=== PATIENT | male | born 1975 | race Caucasian/White ===

== ENCOUNTER 2020-10-05 18:20 | Emergency (ER) | payer BC ==
[2020-10-05 18:27] VITALS: RESP 18; TEMP 97.9
[2020-10-05] MEDS ORDERED: ASPIRIN 81 MG PO STA (19:07)
[2020-10-05] MEDS ORDERED: NITROGLYCERIN OINT 1 INCH/GM PACKET TOPICAL STA (19:07)
[2020-10-05] MEDS ORDERED: LORazepam 2 MG/ML INJ IV STA (19:07)
--- NOTE | 2020-10-05 19:16 | ED ---
General Adult HPI - General Chief complaint: Chest Pain Stated complaint: Chest pain Time Seen by Provider: 10/05/20 18:25 Source: patient, RN notes reviewed, old records reviewed Mode of arrival: wheelchair Limitations: no limitations - History of Present Illness Initial comments: This is a 44-year-old male who presents with left inner slightly posterior thigh pain. Patient states it was pretty severe earlier. Patient states he then started having some chest pain just prior to arrival and the pain did not radiate anywhere and there was only mild shortness of breath. He denies any recent fever chills or cough. Patient states he got the first of 2 vaccines for COVID. Patient denies any abdominal pain patient denies nausea vomiting diarrhea. Patient denies any diabetes states is borderline hypertensive but has no medications. Patient states years ago he did have borderline high cholesterol. Patient states currently he is not having any chest pain. - Related Data Home Medications Medication Instructions Recorded Confirmed Cholecalciferol (Vitamin D3) 125 mcg PO DAILY 10/05/20 10/05/20 [Vitamin D3 (5000 Iu)] Lisdexamfetamine Dimesylate 50 mg PO QAM 10/05/20 10/05/20 [Vyvanse] Multivitamins, Thera [Multivitamin 1 tab PO DAILY 10/05/20 10/05/20 (formulary)] Venlafaxine HCl [Effexor XR] 75 mg PO DAILY 10/05/20 10/05/20 tadalafiL [Tadalafil] 5 mg PO DAILY PRN 10/05/20 10/05/20 Allergies Allergy/AdvReac Type Severity Reaction Status Date / Time No Known Allergies Allergy Verified 10/05/20 20:39 Review of Systems ROS Statement: Those systems with pertinent positive or pertinent negative responses have been documented in the HPI. ROS Other: All systems not noted in ROS Statement are negative. Past Medical History Past Medical History: No Reported History Additional Past Medical History / Comment(s): boderline htn and high cholestrol History of Any Multi-Drug Resistant Organisms: None Reported Additional Past Surgical History / Comment(s): septalplasty Past Anesthesia/Blood Transfusion Reactions: No Reported Reaction Past Psychological History: ADD/ADHD, Depression Smoking Status: Never smoker Past Alcohol Use History: Occasional Past Drug Use History: None Reported - Past Family History Father Additional Family Medical History / Comment(s): no health problems General Exam - General Exam Comments Initial Comments: GENERAL: Patient is well-developed and well-nourished. Patient is nontoxic and well- hydrated and is in no acute distress. ENT: Neck is soft and supple. No significant lymphadenopathy is noted. Oropharynx is clear. Moist mucous membranes. Neck has full range of motion without eliciting any pain. There is no thyroid enlargement and no masses were felt. EYES: The sclera were anicteric and conjunctiva were pink and moist. Extraocular movements were intact and pupils were equal round and reactive to light. Eyelids were unremarkable. PULMONARY: Unlabored respirations. Good breath sounds bilaterally. No audible rales rhonchi or wheezing was noted. CARDIOVASCULAR: There is a regular rate and rhythm without any murmurs gallops or rubs. Femoral pulses are equal bilaterally ABDOMEN: Soft and nontender with normal bowel sounds. No palpable organomegaly was not ed. There is no palpable pulsatile mass. SKIN: Skin is clear with no lesions or rashes and otherwise unremarkable. NEUROLOGIC: Patient is alert and oriented x3. Cranial nerves II through XII are grossly intact. Motor and sensory are also intact. Normal speech, volume and content. Symmetrical smile. Cerebellar exam grossly intact. MUSCULOSKELETAL: Normal extremities with adequate strength and full range of motion. No lower extremity swelling or edema. No calf tenderness. LYMPHATICS: No significant lymphadenopathy is noted PSYCHIATRIC: Normal psychiatric evaluation. Normal interpersonal interactions appears functionally intact in deals appropriately with others. No signs of depression. No signs of anxiety. No delusions. No hallucinations. Limitations: no limitations Course Vital Signs 10/05/20 10/05/20 10/05/20 18:22 19:33 20:26 Temperature 97.9 F Pulse Rate 100 88 92 Respiratory 18 18 18 Rate Blood Pressure 148/90 138/97 129/85 O2 Sat by Pulse 97 98 98 Oximetry Medical Decision Making - Medical Decision Making Patient's EKG shows sinus tachycardia at 101 bpm CO interval is 136 QRS is 106 QT interval 338 QTC is 438 per patient's EKG shows no ST segment elevation or depression. Chest x-ray shows no acute abnormality. I went in the patient's room and told the patient he needed to stay after discussing with his decided to follow-up as an outpatient centered AMA. - Lab Data Result diagrams: 10/05/20 19:14 10/05/20 19:14 Lab Results 10/05/20 10/05/20 10/05/20 Range/Units 19:14 19:14 19:14 WBC 5.9 (3.8-10.6) k/uL RBC 4.70 (4.30-5.90) m/uL Hgb 15.0 (13.0-17.5) gm/dL Hct 41.1 (39.0-53.0) % MCV 87.4 (80.0-100.0) fL MCH 31.8 (25.0-35.0) pg MCHC 36.4 (31.0-37.0) g/dL RDW 11.9 (11.5-15.5) % Plt Count 261 (150-450) k/uL MPV 7.3 Neutrophils % 58 % Lymphocytes % 29 % Monocytes % 6 % Eosinophils % 4 % Basophils % 1 % Neutrophils # 3.5 (1.3-7.7) k/uL Lymphocytes # 1.8 (1.0-4.8) k/uL Monocytes # 0.4 (0-1.0) k/uL Eosinophils # 0.2 (0-0.7) k/uL Basophils # 0.0 (0-0.2) k/uL Hyperchromasia Slight PT 9.9 (9.0-12.0) sec INR 0.9 (<1.2) APTT 24.8 (22.0-30.0) sec D-Dimer 0.18 (<0.60) mg/L FEU Sodium 140 (137-145) mmol/L Potassium 3.8 (3.5-5.1) mmol/L Chloride 105 (98-107) mmol/L Carbon Dioxide 26 (22-30) mmol/L Anion Gap 9 mmol/L BUN 18 (9-20) mg/dL Creatinine 0.72 (0.66-1.25) mg/dL Est GFR (CKD-EPI)AfAm >90 (>60 ml/min/1.73 sqM) Est GFR (CKD-EPI)NonAf >90 (>60 ml/min/1.73 sqM) Glucose 74 (74-99) mg/dL Calcium 9.9 (8.4-10.2) mg/dL Magnesium 2.1 (1.6-2.3) mg/dL Total Bilirubin 0.7 (0.2-1.3) mg/dL AST 38 (17-59) U/L ALT 35 (4-49) U/L Alkaline Phosphatase 63 (38-126) U/L Troponin I (0.000-0.034) ng/mL Total Protein 7.4 (6.3-8.2) g/dL Albumin 4.7 (3.5-5.0) g/dL Lipase 73 (23-300) U/L Influenza Type A (PCR) (Not Detectd) Influenza Type B (PCR) (Not Detectd) RSV (PCR) (Not Detectd) SARS-CoV-2 (PCR) (Not Detectd) 10/05/20 10/05/20 Range/Units 19:14 19:14 WBC (3.8-10.6) k/uL RBC (4.30-5.90) m/uL Hgb (13.0-17.5) gm/dL Hct (39.0-53.0) % MCV (80.0-100.0) fL MCH (25.0-35.0) pg MCHC (31.0-37.0) g/dL RDW (11.5-15.5) % Plt Count (150-450) k/uL MPV Neutrophils % % Lymphocytes % % Monocytes % % Eosinophils % % Basophils % % Neutrophils # (1.3-7.7) k/uL Lymphocytes # (1.0-4.8) k/uL Monocytes # (0-1.0) k/uL Eosinophils # (0-0.7) k/uL Basophils # (0-0.2) k/uL Hyperchromasia PT (9.0-12.0) sec INR (<1.2) APTT (22.0-30.0) sec D-Dimer (<0.60) mg/L FEU Sodium (137-145) mmol/L Potassium (3.5-5.1) mmol/L Chloride (98-107) mmol/L Carbon Dioxide (22-30) mmol/L Anion Gap mmol/L BUN (9-20) mg/dL Creatinine (0.66-1.25) mg/dL Est GFR (CKD-EPI)AfAm (>60 ml/min/1.73 sqM) Est GFR (CKD-EPI)NonAf (>60 ml/min/1.73 sqM) Glucose (74-99) mg/dL Calcium (8.4-10.2) mg/dL Magnesium (1.6-2.3) mg/dL Total Bilirubin (0.2-1.3) mg/dL AST (17-59) U/L ALT (4-49) U/L Alkaline Phosphatase (38-126) U/L Troponin I <0.012 (0.000-0.034) ng/mL Total Protein (6.3-8.2) g/dL Albumin (3.5-5.0) g/dL Lipase (23-300) U/L Influenza Type A (PCR) Not Detected (Not Detectd) Influenza Type B (PCR) Not Detected (Not Detectd) RSV (PCR) Not Detected (Not Detectd) SARS-CoV-2 (PCR) Not Detected (Not Detectd) Disposition Clinical Impression: Chest pain Disposition: Left Against Medical Advice Instructions (If sedation given, give patient instructions): Chest Pain (ED) Is patient prescribed a controlled substance at d/c from ED?: No Referrals: Isabelle Cardoza MD [Primary Care Provider] - 1-2 days Time of Disposition: 21:02
[2020-10-05 19:25] LABS: Basophils % (A) 1 %; Eosinophils # (A) 0.2 k/uL (0-0.7); Eosinophils % (A) 4 %; HCT 41.1 % (39.0-53.0); Hyperchromasia Slight; Lymphocytes # (A) 1.8 k/uL (1.0-4.8); Lymphocytes % (A) 29 %; MCH 31.8 pg (25.0-35.0); MCHC 36.4 g/dL (31.0-37.0); MCV 87.4 fL (80.0-100.0); Mean Platelet Volume 7.3; Monocytes # (A) 0.4 k/uL (0-1.0); Monocytes % (A) 6 %; Neutrophils # (A) 3.5 k/uL (1.3-7.7); Neutrophils % (A) 58 %; Platelet Count 261 k/uL (150-450); RDW 11.9 % (11.5-15.5); WBC 5.9 k/uL (3.8-10.6)
[2020-10-05 19:35] LABS: ALT 35 U/L (4-49); AST 38 U/L (17-59); African American GFR (CKD) >90 (>60 ml/min/1.73 sqM); Albumin 4.7 g/dL (3.5-5.0); Alkaline Phosphatase 63 U/L (38-126); Anion Gap 9 mmol/L; Blood Urea Nitrogen 18 mg/dL (9-20); Calcium 9.9 mg/dL (8.4-10.2); Carbon Dioxide 26 mmol/L (22-30); Chloride 105 mmol/L (98-107); Glucose 74 mg/dL (74-99); Lipase 73 U/L (23-300); Magnesium 2.1 mg/dL (1.6-2.3); Non-African American GFR(CKD) >90 (>60 ml/min/1.73 sqM); Potassium 3.8 mmol/L (3.5-5.1); Sodium 140 mmol/L (137-145); Total Bilirubin 0.7 mg/dL (0.2-1.3); Total Protein 7.4 g/dL (6.3-8.2)
[2020-10-05 19:41] LABS: D-Dimer 0.18 mg/L FEU (<0.60); INR 0.9 (<1.2); Partial Thromboplastin Time 24.8 sec (22.0-30.0); Prothrombin Time 9.9 sec (9.0-12.0)
--- NOTE | 2020-10-05 19:57 | XR ---
EXAMINATION TYPE: XR chest 2V DATE OF EXAM: 10/05/2020 COMPARISON: 06/09/2014. HISTORY: Chest pain. TECHNIQUE: Frontal and lateral views of the chest are obtained. FINDINGS: There is no focal air space opacity, pleural effusion, or pneumothorax seen. The cardiac silhouette size is within normal limits. The osseous structures are intact. IMPRESSION: No acute cardiopulmonary process.
--- NOTE | 2020-10-05 20:22 | US ---
EXAMINATION TYPE: US venous doppler duplex LE LT DATE OF EXAM: 10/05/2020 7:56 PM COMPARISON: NONE CLINICAL HISTORY: Left thigh pain. Left thigh pain. No hx of DVT. Patient does not take blood thinner s. SIDE PERFORMED: Left TECHNIQUE: The lower extremity deep venous system is examined utilizing real time linear array sonog hanna with graded compression, doppler sonography and color-flow sonography. VESSELS IMAGED: Common Femoral Vein Deep Femoral Vein Greater Saphenous Vein * Femoral Vein Popliteal Vein Small Saphenous Vein * Proximal Calf Veins (* superficial vessels) Left Leg: No evidence of DVT in veins imaged at this time from prox calf veins to CFV/GSV. IMPRESSION: No evidence of left lower extremity DVT.
[2020-10-05 20:27] VITALS: BP 129/85; PULSE 92
== END 2020-10-05 21:14 | disposition left against medical advice (07) ==
LOC: EC 18:20
DX: R07.9 Chest pain, unspecified (principal); Z53.29 Procedure and treatment not carried out because of patient's decision for other reasons
CPT/HCPCS: 36415; 93005; 85379; 80053; 83690; 83735; 84484; 85025; 85610; 85730; 87636; 71046; 93971; 99285; 96374; J2060

== ENCOUNTER → 2021-09-03 | Outpatient (CLI) | payer BC ==
--- NOTE | 2021-09-03 15:39 | XR ---
Lumbar spine with flexion and extension views HISTORY: M 54.41 8 views of lumbosacral spine There is no evident spondylolysis or spondylolisthesis. Loss of disc height is present at L5-S1 with associated sclerosis, multilevel spondylosis. Loss of disc height also present to lesser extent at L4 -5. Sclerosis is present in the posterior elements. No change in alignment on flexion and extension v iews, minimal retrolisthesis grade 1 L5-S1 is stable. Vacuum phenomenon is noted on extension view at L5-S1. IMPRESSION: Degenerative disc disease and facet arthropathy.
== END | disposition home or self-care (01) ==
LOC: RADXRMAIN 14:47
PROVIDERS: ATTEND Specialist
DX: M51.36 Other intervertebral disc degeneration, lumbar region (principal); M47.816 Spondylosis without myelopathy or radiculopathy, lumbar region
CPT/HCPCS: 72114

== ENCOUNTER → 2021-10-08 | Outpatient (CLI) | payer BC ==
--- NOTE | 2021-10-08 15:43 | XR ---
Lumbar spine HISTORY: Back pain 3 views of lumbar spine, correlation prior exam 09/03/2021 There is been interval posterior fusion at L5-S1. Loss of disc height and intervertebral spacing bloc k is noted at this level with associated spondylosis, minimal retrolisthesis grade 1 L5-S1 is suspect ed. Lumbar vertebral bodies show preserved height. There is a slight spinal curvature. Transpedicular screw placement on the left projects slightly laterally. impression: Surgical follow-up as described, CT may be of benefit
== END | disposition home or self-care (01) ==
LOC: RADXRMAIN 15:02
PROVIDERS: ATTEND Specialist
DX: M43.8X6 Other specified deforming dorsopathies, lumbar region (principal); M51.36 Other intervertebral disc degeneration, lumbar region; M43.27 Fusion of spine, lumbosacral region
CPT/HCPCS: 72100

== ENCOUNTER 2021-10-17 11:43 | Inpatient (IN) | payer BC ==
[2021-10-17] MEDS ORDERED: FAMOTIDINE 20 MG/2 ML VIAL IV STA (12:00)
[2021-10-17] MEDS ORDERED: PANTOPRAZOLE 40 MG TABLET PO STA (12:01)
[2021-10-17] MEDS ORDERED: ONDANSETRON 4 MG/2 ML VIAL IVP STA (12:20)
[2021-10-17 12:23] LABS: ALT 596 U/L (4-49); AST 327 U/L (17-59); African American GFR (CKD) >90 (>60 ml/min/1.73 sqM); Albumin 4.4 g/dL (3.5-5.0); Alkaline Phosphatase 279 U/L (38-126); Anion Gap 8 mmol/L; Blood Urea Nitrogen 12 mg/dL (9-20); Calcium 9.3 mg/dL (8.4-10.2); Carbon Dioxide 25 mmol/L (22-30); Chloride 103 mmol/L (98-107); Glucose 122 mg/dL (74-99); Lipase 47 U/L (23-300); Non-African American GFR(CKD) >90 (>60 ml/min/1.73 sqM); Potassium 3.9 mmol/L (3.5-5.1); Sodium 136 mmol/L (137-145); Total Bilirubin 2.8 mg/dL (0.2-1.3); Total Protein 7.3 g/dL (6.3-8.2)
[2021-10-17 12:24] LABS: Basophils # (A) 0.1 k/uL (0-0.2); Basophils % (A) 1 %; Eosinophils # (A) 0.4 k/uL (0-0.7); Eosinophils % (A) 7 %; HCT 42.5 % (39.0-53.0); Lymphocytes # (A) 0.5 k/uL (1.0-4.8); Lymphocytes % (A) 9 %; MCH 31.7 pg (25.0-35.0); MCHC 35.4 g/dL (31.0-37.0); MCV 89.6 fL (80.0-100.0); Mean Platelet Volume 7.2; Monocytes # (A) 0.4 k/uL (0-1.0); Monocytes % (A) 7 %; Neutrophils # (A) 4.3 k/uL (1.3-7.7); Neutrophils % (A) 74 %; Platelet Count 305 k/uL (150-450); RBC 4.74 m/uL (4.30-5.90); WBC 5.8 k/uL (3.8-10.6)
--- NOTE | 2021-10-17 12:37 | XR ---
EXAMINATION TYPE: XR chest 2V DATE OF EXAM: 10/17/2021 COMPARISON: 10/05/2020 HISTORY: 45-year-old male epigastric pain and vomiting TECHNIQUE: PA and lateral views FINDINGS: Heart normal size. Aorta and pulmonary vasculature within normal limits. Mild interstitial prominence has a chronic appearance. No consolidation or pleural effusion. IMPRESSION: No acute cardiopulmonary process.
[2021-10-17] MEDS ORDERED: HYDROmorphone 0.5 MG/0.5 ML SYRINGE IVP STA (12:52)
--- NOTE | 2021-10-17 13:39 | ED ---
Abdominal Pain HPI - General Chief Complaint: Abdominal Pain Stated Complaint: Abd Pain,Vomiting Time Seen by Provider: 10/17/21 11:53 Source: patient Mode of arrival: ambulatory - History of Present Illness Initial Comments: Patient is a 45-year-old male who presents to the emergency department with a chief complaint of upper abdominal pain for 2 days. Patient states he initially experienced pain 2 days ago and yesterday the pain subsided. Patient states he woke up with increased pain today. Describes it as an aching pain in the middle upper abdomen. No chest pain. Patient had one episode of vomiting this morning after eating. He states he never felt nauseous just felt like he couldn't get the food down. No history of acid reflux. No history of abdominal surgery. No fever or chills. Normal bowel movements, nonbloody. Of note, patient had spinal fusion 3 weeks ago. - Related Data Home Medications Medication Instructions Recorded Confirmed Cholecalciferol (Vitamin D3) 125 mcg PO DAILY 10/05/20 10/05/20 [Vitamin D3 (5000 Iu)] Lisdexamfetamine Dimesylate 50 mg PO QAM 10/05/20 10/05/20 [Vyvanse] Multivitamins, Thera [Multivitamin 1 tab PO DAILY 10/05/20 10/05/20 (formulary)] Venlafaxine HCl [Effexor XR] 75 mg PO DAILY 10/05/20 10/05/20 tadalafiL 5 mg PO DAILY PRN 10/05/20 10/05/20 Allergies Allergy/AdvReac Type Severity Reaction Status Date / Time No Known Allergies Allergy Verified 10/17/21 11:51 Review of Systems ROS Statement: Those systems with pertinent positive or pertinent negative responses have been documented in the HPI. ROS Other: All systems not noted in ROS Statement are negative. Past Medical History Past Medical History: No Reported History Additional Past Medical History / Comment(s): boderline htn and high cholestrol History of Any Multi-Drug Resistant Organisms: None Reported Additional Past Surgical History / Comment(s): septalplasty Past Anesthesia/Blood Transfusion Reactions: No Reported Reaction Past Psychological History: ADD/ADHD, Depression Smoking Status: Never smoker Past Alcohol Use History: Occasional Past Drug Use History: None Reported - Past Family History Father Additional Family Medical History / Comment(s): no health problems General Exam General appearance: alert, in no apparent distress Head exam: Present: atraumatic, normocephalic, normal inspection Eye exam: Present: normal appearance, PERRL, EOMI. Absent: scleral icterus, conjunctival injection, periorbital swelling ENT exam: Present: normal oropharynx Respiratory exam: Present: normal lung sounds bilaterally. Absent: respiratory distress, wheezes, rales, rhonchi, stridor, chest wall tenderness Cardiovascular Exam: Present: normal rhythm, tachycardia, normal heart sounds. Absent: regular rate, systolic murmur, diastolic murmur, rubs, gallop, clicks GI/Abdominal exam: Present: soft, tenderness (Mild in epigastric region), normal bowel sounds. Absent: distended, guarding, rebound, rigid Back exam: Present: normal inspection (Surgical incisions healing nicely) Neurological exam: Present: alert, oriented X3, CN II-XII intact Psychiatric exam: Present: normal affect, normal mood Skin exam: Present: warm, dry, intact, normal color. Absent: rash Course Vital Signs 10/17/21 10/17/21 10/17/21 11:47 12:50 14:00 Temperature 98.2 F Pulse Rate 109 H 101 H 93 Respiratory 18 18 16 Rate Blood Pressure 129/85 139/95 132/89 O2 Sat by Pulse 98 97 95 Oximetry Medical Decision Making - Medical Decision Making This is a 45-year-old male who presents with intermittent epigastric pain. Thorough history and examination were performed. Patient is well-appearing and in no apparent distress. He is afebrile. No abdominal history. There is mild tenderness with palpation of the epigastric region. No chest wall tenderness. No chest pain. Patient initially denied nausea during his stay had an episode of nausea and vomiting. Zofran was given. Laboratory studies and imaging was obtained. Patient had an unremarkable chest x-ray and significantly elevated liver enzymes. AST at 327, ALT of 596, and alk phos at 279. Total bilirubin also elevated at 2.8. White count normal at 5.8. I did reexamine patient's abdomen who does not have right upper quadrant te nderness. Negative Patton sign. With concern for gallbladder pathology ultrasound was obtained. Ultrasound shows a collapsed gallbladder with multiple stones and borderline wall thickening with concern for acute cholecystitis. Antibiotics, IV fluids, and NPO diet were initiated. Case discussed with Dr. Palmer and Dr. Monreal. Patient will be admitted to Dr. Monreal with consult to Dr. Palmer. Results discussed the patient verbalizes understanding and is agreeable to plan. Patient's pain and nausea are controlled. He declines additional medication at this time. Admitted in stable condition. Dr. Flower is my attending. - Lab Data Result diagrams: 10/17/21 12:06 10/17/21 12:06 Lab Results 10/17/21 10/17/21 Range/Units 12:06 12:06 WBC 5.8 (3.8-10.6) k/uL RBC 4.74 (4.30-5.90) m/uL Hgb 15.0 (13.0-17.5) gm/dL Hct 42.5 (39.0-53.0) % MCV 89.6 (80.0-100.0) fL MCH 31.7 (25.0-35.0) pg MCHC 35.4 (31.0-37.0) g/dL RDW 13.0 (11.5-15.5) % Plt Count 305 (150-450) k/uL MPV 7.2 Neutrophils % 74 % Lymphocytes % 9 % Monocytes % 7 % Eosinophils % 7 % Basophils % 1 % Neutrophils # 4.3 (1.3-7.7) k/uL Lymphocytes # 0.5 L (1.0-4.8) k/uL Monocytes # 0.4 (0-1.0) k/uL Eosinophils # 0.4 (0-0.7) k/uL Basophils # 0.1 (0-0.2) k/uL Sodium 136 L (137-145) mmol/L Potassium 3.9 (3.5-5.1) mmol/L Chloride 103 (98-107) mmol/L Carbon Dioxide 25 (22-30) mmol/L Anion Gap 8 mmol/L BUN 12 (9-20) mg/dL Creatinine 0.79 (0.66-1.25) mg/dL Est GFR (CKD-EPI)AfAm >90 (>60 ml/min/1.73 sqM) Est GFR (CKD-EPI)NonAf >90 (>60 ml/min/1.73 sqM) Glucose 122 H (74-99) mg/dL Calcium 9.3 (8.4-10.2) mg/dL Total Bilirubin 2.8 H (0.2-1.3) mg/dL AST 327 H (17-59) U/L ALT 596 H (4-49) U/L Alkaline Phosphatase 279 H (38-126) U/L Total Protein 7.3 (6.3-8.2) g/dL Albumin 4.4 (3.5-5.0) g/dL Lipase 47 (23-300) U/L - EKG Data EKG Comments: EKG taken at 12:17 Sinus rhythm, no ST elevation or depression Ventricular rate 98 MI interval 133 QRS duration 102 QTC 363 Disposition Clinical Impression: Nausea & vomiting, Epigastric abdominal pain, Acute cholecystitis Disposition: ADMITTED IP TO THIS HOSP Condition: Fair Referrals: Isabelle Cardoza MD [Primary Care Provider] - 1-2 days Decision Time: 14:46
--- NOTE | 2021-10-17 14:02 | US ---
EXAMINATION TYPE: US abdomen limited DATE OF EXAM: 10/17/2021 COMPARISON: NONE CLINICAL HISTORY: 45-year-old male epigastric pain, elevated LFT. TECHNIQUE: Multiple sonographic images of the right upper quadrant are obtained. FINDINGS: EXAM MEASUREMENTS: Liver Length: 13.3 cm Gallbladder Wall: 0.3 cm CBD: 0.3 cm Right Kidney: 10.5 x 5.8 x 4.7 cm [employer] notes: Severe overlying bowel gas, technically difficult and limited study. Pancreas: Obscured by bowel gas Liver: wnl Gallbladder: Partially collapsed with multiple stones within its lumen and suggestion of borderline w all thickening. Evidence for sonographic Patton's sign: Yes CBD: very limited visualization, appears wnl . The short segment that is visualized is normal calibe r. Right Kidney: No hydronephrosis or masses seen IMPRESSION: 1. Markedly limited exam as above. 2. The collapsed gallbladder is filled with stones and seems to show borderline wall thickening. Karis elate for chronic cholecystitis. However, given positive sonographic Patton's sign, if concern for ea rly acute cholecystitis, HIDA scan can be performed. 3. Bile duct largely obscured. A short segment of the visualized duct measures normal caliber at 3 mm .
[2021-10-17] MEDS ORDERED: SODIUM CHLORIDE 0.9% 2,000 ML IV STA (14:08)
[2021-10-17] MEDS ORDERED: PIPERACILLIN-TAZOBACTAM 3.375 GM in SODIUM CHLORIDE 0.9% 100 ML IVPB STA (14:09)
[2021-10-17] MEDS ORDERED: NALOXONE 0.4 MG/ML 1 ML VIAL IV PRN ×2 (14:18→18:00)
[2021-10-17] MEDS: ONDANSETRON 4 MG/2 ML VIAL IVP PRN (16:57)
[2021-10-17] MEDS: SODIUM CHLORIDE 0.9% 1,000 ML IV SCH (16:57)
[2021-10-17] MEDS: HYDROmorphone 0.5 MG/0.5 ML SYRINGE IVP PRN ×2 (16:57→20:14)
--- NOTE | 2021-10-17 18:08 | P.HPIM ---
History of Present Illness H&P Date: 10/17/21 Chief Complaint: epigastric pain 45-year-old male who presents to the emergency department with a chief complaint of upper abdominal pain for 2 days. Describes it as an aching pain in the middle upper abdomen. No chest pain. Patient had several episodes of vomiting with this. No fever or chills. Normal bowel movements, nonbloody. Of note, patient had spinal fusion 3 weeks ago. No history of acid reflux. No history of abdominal surgery. Patient was afebrile in the emergency department, blood pressure was stable at his heart rate was up at 110. Laboratory evaluation showed no leukocytosis, sodium 136, rest of electrolytes okay, AST 327, ALT 596, Alp 279, bilirubin 2.8. Abdominal ultrasound showed gallbladder filled with stones with wall thickening. Review of Systems Complete review of system was performed, negative except for what is stated in HPI Past Medical History Past Medical History: No Reported History Additional Past Medical History / Comment(s): boderline htn and high cholestrol History of Any Multi-Drug Resistant Organisms: None Reported Additional Past Surgical History / Comment(s): septalplasty Past Anesthesia/Blood Transfusion Reactions: No Reported Reaction Past Psychological History: ADD/ADHD, Depression Smoking Status: Never smoker Past Alcohol Use History: Occasional Past Drug Use History: None Reported - Past Family History Father Additional Family Medical History / Comment(s): no health problems Medications and Allergies Home Medications Medication Instructions Recorded Confirmed Type Venlafaxine HCl [Effexor XR] 75 mg PO DAILY 10/05/20 10/17/21 History tadalafiL 5 mg PO DAILY PRN 10/05/20 10/17/21 History Dextroamphetamine/Amphetamine 25 mg PO DAILY 10/17/21 10/17/21 History [Adderall Xr] Ibuprofen [Motrin] 800 mg PO TID PRN 10/17/21 10/17/21 History Allergies Allergy/AdvReac Type Severity Reaction Status Date / Time No Known Allergies Allergy Verified 10/17/21 14:49 Physical Exam Vitals: Vital Signs Temp Pulse Resp BP Pulse Ox 10/17/21 12:50 101 H 18 139/95 97 10/17/21 11:47 98.2 F 109 H 18 129/85 98 Intake and Output 10/16/21 10/17/21 10/17/21 22:59 06:59 14:59 Other: Weight 86.183 kg Constitutional: No acute distress, conversant, pleasant Eyes:Anicteric sclerae, moist conjunctiva, no lid-lag, PERRLA, ENMT: Oropharynx clear, no erythema, exudates Neck: Supple, FROM, no masses, or JVD, No carotid bruits, No thyromegaly Lungs: Clear to auscultation, Clear to percussion, Normal respiratory effort, no accessory muscle use Cardiovascular: Heart regular in rate and rhythm, No murmurs, gallops, or rubs, No peripheral edema Abdominal: Soft, tender in the epigastric area, no guarding, rebound or rigidity, Normoactive bowel sounds, No hepatomegaly, No splenomegaly, No pal pable mass Skin: Normal temperature, tone, texture, turgor, no induration, No subcutaneous nodules, No rash, lesions, No ulcers Extremities: No digital cyanosis, No clubbing, Pedal pulses intact and symmetrical, Radial pulses intact and symmetrical, No calf tenderness Psychiatric: Alert and oriented to person, place and time, appropriate affect, intact judgement Neuro: Muscles Strength 5/5 in all 4 extremities, Sensation to light touch grossly present throughout, Cranial nerves II-XII grossly intact, no focal sensory deficits Results CBC & Chem 7: 10/17/21 12:06 10/17/21 12:06 Labs: Abnormal Lab Results - Last 24 Hours (Table) 10/17/21 10/17/21 Range/Units 12:06 12:06 Lymphocytes # 0.5 L (1.0-4.8) k/uL Sodium 136 L (137-145) mmol/L Glucose 122 H (74-99) mg/dL Total Bilirubin 2.8 H (0.2-1.3) mg/dL AST 327 H (17-59) U/L ALT 596 H (4-49) U/L Alkaline Phosphatase 279 H (38-126) U/L Assessment and Plan Plan: Abdominal pain likely secondary to acute cholecystitis with cholelithiasis Consult general surgery Nothing by mouth Pain control with Toradol and opiates Zosyn Follow LFTs in a.m. Transaminitis Likely secondary to above Follow LFTs in a.m. IV fluids Chronic ADHD, Depression Hold meds for now as he is nothing by mouth DVT prophylaxis Lovenox subcu Admit to inpatient, expected length of stay more than 2 midnights
[2021-10-17] MEDS ORDERED: METOCLOPRAMIDE 5 MG/ML 2 ML VIAL IVP STA (19:58)
[2021-10-17] MEDS: ENOXAPARIN 40 MG/0.4 ML SYRINGE SQ SCH (21:25)
[2021-10-17] MEDS: PIPERACILLIN-TAZOBACTAM 3.375 GM in SODIUM CHLORIDE 0.9% 100 ML IVPB SCH (21:26)
[2021-10-18] MEDS: SODIUM CHLORIDE 0.9% 1,000 ML IV SCH ×3 (02:30→17:57)
[2021-10-18] MEDS: PIPERACILLIN-TAZOBACTAM 3.375 GM in SODIUM CHLORIDE 0.9% 100 ML IVPB SCH ×3 (05:27→19:20)
[2021-10-18] MEDS: ENOXAPARIN 40 MG/0.4 ML SYRINGE SQ SCH (09:05)
[2021-10-18 09:39] LABS: Basophils # (A) 0.04 X 10*3/uL (0.00-0.10); Basophils % (A) 0.8 %; Eosinophils % (A) 8.2 %; HCT 38.2 % (39.6-50.0); Immature Grans, Automated 0.4 %; Lymphocytes # (A) 0.51 X 10*3/uL (0.90-5.00); Lymphocytes % (A) 10.5 %; MCH 30.7 pg (27.0-32.0); MCV 90.1 fL (80.0-97.0); Mean Platelet Volume 10.5 fL (9.5-12.2); Monocytes % (A) 8.2 %; NRBC Per 100 WBC 0 /100 WBCS (0.0-0.0); Neutrophils # (A) 3.51 X 10*3/uL (1.80-7.70); Neutrophils % (A) 71.9 %; Platelet Count 246 X 10*3/uL (140-440); RBC 4.24 X 10*6/uL (4.40-5.60); RDW 12.7 % (11.5-14.5); WBC 4.88 X 10*3/uL (4.50-10.00)
[2021-10-18 09:57] LABS: Magnesium 1.9 mg/dL (1.5-2.4); Phosphorus 3.2 mg/dL (2.4-5.1)
[2021-10-18 10:16] LABS: African American GFR (CKD) 104.9 (60.0-200.0); Albumin 3.9 g/dL (3.8-4.9); Albumin/Globulin Ratio 1.86 (1.60-3.17); Anion Gap 10.4 mmol/L (10.00-18.00); BUN/Creat Ratio 6.6 Ratio (12.00-20.00); Blood Urea Nitrogen 6.6 mg/dL (9.0-27.0); Calcium 8.9 mg/dL (8.7-10.3); Carbon Dioxide 25.6 mmol/L (20.0-27.5); Globulin 2.1 g/dL (1.6-3.3); Non-African American GFR(CKD) 90.5 (60.0-200.0); Potassium 4.2 mmol/L (3.5-5.5); Total Bilirubin 4.7 mg/dL (0.30-1.20)
[2021-10-18] MEDS: ONDANSETRON 4 MG/2 ML VIAL IVP PRN ×2 (11:19→21:42)
--- NOTE | 2021-10-18 13:05 | P.GSCN ---
History of Present Illness Consult date: 10/18/21 History of present illness: CHIEF COMPLAINT: Abdominal pain HISTORY OF PRESENT ILLNESS: This is a 46-year-old male who presented to the emergency room with complaints of epigastric abdominal pain for the past 4 days. He has been having nausea and vomiting. He reports that symptoms did start on Monday had improved slightly and then on Monday evening after he ate ribs D abdominal pain worsened. Gallbladder ultrasound had demonstrated collapse gallbladder filled with stones and seems to show borderline wall thickening. Correlate for chronic cholecystitis and possible acute cholecystitis. Positive Patton sign. Bile duct largely obscured. Short segment of the visual lights duct measures normal caliber at 3 mm. Patient's LFTs and total bilirubin are elevated. He reports his pain is controlled with pain medication. No prior abdominal surgeries. Patient has had mild tachycardia. And low-grade temp of 99. PAST MEDICAL HISTORY: Hypertension and hypercholesterolemia, ADHD PAST SURGICAL HISTORY: See list. MEDICATIONS: See list. ALLERGIES: See list. SOCIAL HISTORY: No illicit drug use. REVIEW OF SYSTEMS: CONSTITUTIONAL: Denies fever or chills. HEENT: Denies blurred vision, vision changes, or eye pain. Denies hemoptysis CARDIOVASCULAR: Denies chest pain or pressure. RESPIRATORY: No shortness of breath. GASTROINTESTINAL: See HPI for pertinent findings HEMATOLOGIC: Denies bleeding disorders. GENITOURINARY: Denies any blood in urine or increased urinary frequency. SKIN: Denies pruitis. Denies rash. PHYSICAL EXAM: VITAL SIGNS: Reviewed GENERAL: Well-developed in no acute distress. HEENT: No sclera icterus. Extraocular movements grossly intact. Moist buccal mucosa. Head is atraumatic, normocephalic. No nasal drainage. ABDOMEN: Soft. Nondistended. Mild tenderness to palpation epigastric area NEUROLOGIC: Alert and oriented. Cranial nerves II through XII grossly intact. LABORATORY DATA: WBC is 4.88 hemoglobin 13 platelets 246 Sodium is 140 potassium is 4.2 creatinine 1.0 Total bilirubin 2.8 up to 4.70 AST 327 down to 138 ALT 596 down to 419 alk phos 279 down to 272 Lipase 47 IMAGING: Ultrasound findings as stated above ASSESSMENT: 1. Acute cholecystitis with cholelithiasis and borderline gallbladder wall thickening noted on ultrasound 2. Elevated LFTs and total bilirubin with possible choledocholithiasis PLAN: -Further recommendations forthcoming per surgeon -Keep patient nothing by mouth -Continue IV antibiotics -Continue IV fluids -Repeat CMP in a.m. -Continue pain medication as needed -continue antiemetics as needed Thank you for this consultation Physician [employer] note has been reviewed by physician. Signing provider agrees with the documented findings, assessment, and plan of care. Past Medical History Past Medical History: No Reported History Additional Past Medical History / Comment(s): boderline htn and high cholestrol History of Any Multi-Drug Resistant Organisms: None Reported Past Surgical History: Back Surgery Additional Past Surgical History / Comment(s): septalplasty Past Anesthesia/Blood Transfusion Reactions: No Reported Reaction Past Psychological History: ADD/ADHD, Depression Smoking Status: Never smoker Past Alcohol Use History: Occasional Past Drug Use History: None Reported - Past Family History Father Additional Family Medical History / Comment(s): no health problems Medications and Allergies Home Medications Medication Instructions Recorded Confirmed Type Venlafaxine HCl [Effexor XR] 75 mg PO DAILY 10/05/20 10/17/21 History tadalafiL 5 mg PO DAILY PRN 10/05/20 10/17/21 History Dextroamphetamine/Amphetamine 25 mg PO DAILY 10/17/21 10/17/21 History [Adderall Xr] Ibuprofen [Motrin] 800 mg PO TID PRN 10/17/21 10/17/21 History Allergies Allergy/AdvReac Type Severity Reaction Status Date / Time No Known Allergies Allergy Verified 10/17/21 14:49 Surgical - Exam Vital Signs Temp Pulse Resp BP Pulse Ox 98.2 F 109 H 18 129/85 98 10/17/21 11:47 10/17/21 11:47 10/17/21 11:47 10/17/21 11:47 10/17/21 11:47 Results - Labs 10/18/21 06:26 10/18/21 06:26 Abnormal Lab Results - Last 24 Hours (Table) 10/17/21 10/17/21 10/18/21 Range/Units 12:06 12:06 06:26 RBC 4.24 L (4.40-5.60) X 10*6/uL Hct 38.2 L (39.6-50.0) % Lymphocytes # 0.5 L 0.51 L (1.0-4.8) k/uL Eosinophils # 0.40 H (0.04-0.35) X 10*3/uL Sodium 136 L (137-145) mmol/L Glucose 122 H (74-99) mg/dL Total Bilirubin 2.8 H (0.2-1.3) mg/dL AST 327 H (17-59) U/L ALT 596 H (4-49) U/L Alkaline Phosphatase 279 H (38-126) U/L Diabetes panel 10/17/21 Range/Units 12:06 Sodium 136 L (137-145) mmol/L Potassium 3.9 (3.5-5.1) mmol/L Chloride 103 (98-107) mmol/L Carbon Dioxide 25 (22-30) mmol/L BUN 12 (9-20) mg/dL Creatinine 0.79 (0.66-1.25) mg/dL Glucose 122 H (74-99) mg/dL Calcium 9.3 (8.4-10.2) mg/dL AST 327 H (17-59) U/L ALT 596 H (4-49) U/L Alkaline Phosphatase 279 H (38-126) U/L Total Protein 7.3 (6.3-8.2) g/dL Albumin 4.4 (3.5-5.0) g/dL Calcium panel 10/17/21 Range/Units 12:06 Calcium 9.3 (8.4-10.2) mg/dL Albumin 4.4 (3.5-5.0) g/dL Pituitary panel 10/17/21 Range/Units 12:06 Sodium 136 L (137-145) mmol/L Potassium 3.9 (3.5-5.1) mmol/L Chloride 103 (98-107) mmol/L Carbon Dioxide 25 (22-30) mmol/L BUN 12 (9-20) mg/dL Creatinine 0.79 (0.66-1.25) mg/dL Glucose 122 H (74-99) mg/dL Calcium 9.3 (8.4-10.2) mg/dL Adrenal panel 10/17/21 Range/Units 12:06 Sodium 136 L (137-145) mmol/L Potassium 3.9 (3.5-5.1) mmol/L Chloride 103 (98-107) mmol/L Carbon Dioxide 25 (22-30) mmol/L BUN 12 (9-20) mg/dL Creatinine 0.79 (0.66-1.25) mg/dL Glucose 122 H (74-99) mg/dL Calcium 9.3 (8.4-10.2) mg/dL Total Bilirubin 2.8 H (0.2-1.3) mg/dL AST 327 H (17-59) U/L ALT 596 H (4-49) U/L Alkaline Phosphatase 279 H (38-126) U/L Total Protein 7.3 (6.3-8.2) g/dL Albumin 4.4 (3.5-5.0) g/dL
--- NOTE | 2021-10-18 17:21 | P.PN ---
Subjective Progress Note Date: 10/18/21 Hospital course: Patient is a 46-year-old male who presents to the emergency department with a chief complaint of upper abdominal pain for 2 days. Describes it as an aching pain in the middle upper abdomen. No chest pain. Patient had several episodes of vomiting with this. No fever or chills. Normal bowel movements, nonbloody. Of note, patient had spinal fusion 3 weeks ago. No history of acid reflux. No history of abdominal surgery. Upon arrival to the emergency department patient was found to have tachycardia with heart rate elevating to 110s and transaminitis with total bili of 2.8, AST 327, ALT 596 and alkaline phosphatase of 279. Abdominal ultrasound was completed which revealed gallbladder filled with stones with wall thickening. Patient was admitted under our services with consultation to general surgery. Physical exam: Patient was seen and fully evaluated at bedside this morning. He was found to have further elevation of total bili up to 4.70 with remainder of liver enzymes slightly improving with AST of 138, ALT 419, and alkaline phosphatase of 272. P atient reports mild improvement in his pain but contributes this to pain medication he has been receiving. Patient does report mild nausea. At this time patient remains nothing by mouth with plans for possible cholecystectomy later today pending further evaluation by surgeon. Vital signs reviewed and stable. General: Nontoxic, no distress and appears stated age. Derm: Skin warm and dry, normal coloration for ethnicity. Head: Atraumatic, normocephalic and symmetric. Eyes: EOMs intact, no lid lag, and anicteric sclera Mouth: no lip lesions, mucus membranes moist Cardiovascular: regular rate and rhythm with normal S1S2, no murmur, positive posterior tibial pulses bilaterally, and cap refill < 2 seconds. Lungs: Respirations even, regular, and unlabored on room air. Lungs CTA bilater ally, no rhonchi, no rales, no wheezing, and no accessory muscle usage. Abdominal: soft, mild epigastric tenderness upon palpation, no guarding, no appreciable organomegaly Ext: ROM intact. No gross muscle atrophy, no edema, no contractures Neuro: Speech clear, face symmetrical and CN II-XII grossly intact with no noted focal neuro deficits Psych: Alert and oriented to person, place, time, and situation. Appropriate and pleasant affect. Assessment and Plan of Care: Abdominal pain secondary to acute cholecystitis with cholelithiasis Transaminitis likely secondary to acute cholecystitis -Gen. surgery following, plans for cholecystectomy -NPO pending further recommendations from general surgery. -Symptomatic care and pain management -IV antibiotics Zosyn -Continue gentle IV fluid hydration -Continued close monitoring with repeat a.m. labs. Chronic ADHD, Depression Hold meds for now as he is nothing by mouth CODE STATUS: Full code DVT prophylaxis: Lovenox Discussed with: Patient and RN Anticipated discharge date: Clinical course to determine Anticipated discharge place: Home A total of 37 minutes was spent on the care of this complex patient more than 50% of the time was spent in counseling and care coordination. Objective - Vital Signs Vital signs: Vital Signs Temp 98.4 F 10/18/21 07:00 Pulse 87 10/18/21 07:00 Resp 20 10/18/21 07:00 BP 133/79 10/18/21 07:00 Pulse Ox 95 10/18/21 07:00 Intake & Output 10/17/21 10/18/21 10/18/21 18:59 06:59 18:59 Weight 86.183 kg Other: # Voids 2 - Labs CBC & Chem 7: 10/19/21 05:41 10/19/21 05:41 Labs: Abnormal Lab Results - Last 24 Hours (Table) 10/17/21 10/17/21 Range/Units 12:06 12:06 Lymphocytes # 0.5 L (1.0-4.8) k/uL Sodium 136 L (137-145) mmol/L Glucose 122 H (74-99) mg/dL Total Bilirubin 2.8 H (0.2-1.3) mg/dL AST 327 H (17-59) U/L ALT 596 H (4-49) U/L Alkaline Phosphatase 279 H (38-126) U/L Assessment and Plan Plan: This documentation was completed by the Nurse Practitioner. History, physical examination including assessment and plan were only completed by Nurse Practitioner and was NOT evaluated by myself the attending physician including all plan of care including discharge planning and documentation. I did NOT participate or have any communication regarding the patient, including orders, imaging, diagnostic work up, consultations, communication with registered RN/polygraph technician and discharge planning/instructions. I will be co-signing this documentation as this is a requirement per [facility] and agreement.
[2021-10-18] MEDS: HYDROmorphone 0.5 MG/0.5 ML SYRINGE IVP PRN ×2 (17:57→22:55)
--- NOTE | 2021-10-18 21:13 | MR ---
MR MRCP INDICATION: Patient age:Male; 46 years old; Reason for study: Elevated LFTs, possible choledocholithiasis; COMPARISON: Ultrasound 10/17/2021. TECHNIQUE: Multi planar, T2-weighted imaging with and without fat saturation and chemical shift imag ing was performed of the abdomen. Then, heavily T2 weighted imaging (half-Fourier acquisition single- shot turbo spin-echo) was utilized in order to study the biliary system. Maximum intensity projectio n images were reconstructed from the original data of the biliary tree. No Gadolinium given. FINDINGS: MRCP: The intrahepatic ducts have a normal appearance. The common bile duct at the level of the verma creatic head measures 8 mm in size. The common hepatic duct measures 5 mm in size. The pancreatic du ct is normal. The gallbladder is partially distended with the ryan measuring up to 3 mm, at the upper limits of no rmal. No convincing inflammatory changes around the gallbladder. Abdomen: The spleen, adrenal glands, kidneys, and pancreas have a normal noncontrast appearance. Scattered high T2 foci are too small to categorize but likely represent cysts. No convincing evidence for hepatic steatosis. There is mild gynecomastia changes bilaterally Partially visualized fixation hardware in the lower lumbar spine L5 and S1. IMPRESSION: 1. Mildly dilated common bile duct without evidence of choledocholithiasis or stricture. 2. No evidence of gallbladder wall thickening or cholelithiasis. Findings on prior ultrasound felt t o represent nondistended gallbladder.
[2021-10-19] MEDS: SODIUM CHLORIDE 0.9% 1,000 ML IV SCH ×4 (02:36→22:26)
[2021-10-19] MEDS: PIPERACILLIN-TAZOBACTAM 3.375 GM in SODIUM CHLORIDE 0.9% 100 ML IVPB SCH ×3 (02:43→19:40)
[2021-10-19] MEDS: HYDROmorphone 0.5 MG/0.5 ML SYRINGE IVP PRN ×3 (08:20→15:45)
[2021-10-19 09:24] LABS: Basophils # (A) 0.04 X 10*3/uL (0.00-0.10); Basophils % (A) 0.9 %; Eosinophils # (A) 0.51 X 10*3/uL (0.04-0.35); Eosinophils % (A) 12.1 %; HCT 37.4 % (39.6-50.0); HGB 13.1 g/dL (13.0-17.0); Immature Grans, Automated 0.5 %; Lymphocytes # (A) 0.85 X 10*3/uL (0.90-5.00); Lymphocytes % (A) 20.1 %; MCH 31.2 pg (27.0-32.0); Mean Platelet Volume 10.6 fL (9.5-12.2); Monocytes # (A) 0.53 X 10*3/uL (0.20-1.00); Monocytes % (A) 12.6 %; NRBC Per 100 WBC 0 /100 WBCS (0.0-0.0); Neutrophils # (A) 2.27 X 10*3/uL (1.80-7.70); Neutrophils % (A) 53.8 %; Platelet Count 231 X 10*3/uL (140-440); RDW 12.9 % (11.5-14.5); WBC 4.22 X 10*3/uL (4.50-10.00)
[2021-10-19 09:45] LABS: African American GFR (CKD) 104.9 (60.0-200.0); Albumin 3.9 g/dL (3.8-4.9); Albumin/Globulin Ratio 1.86 (1.60-3.17); Anion Gap 8.4 mmol/L (10.00-18.00); BUN/Creat Ratio 5.3 Ratio (12.00-20.00); Blood Urea Nitrogen 5.3 mg/dL (9.0-27.0); Carbon Dioxide 27.6 mmol/L (20.0-27.5); Globulin 2.1 g/dL (1.6-3.3); Non-African American GFR(CKD) 90.5 (60.0-200.0); Potassium 4.3 mmol/L (3.5-5.5); Total Bilirubin 4.2 mg/dL (0.30-1.20)
[2021-10-19] MEDS: ENOXAPARIN 40 MG/0.4 ML SYRINGE SQ SCH (10:25)
--- NOTE | 2021-10-19 13:39 | P.PN ---
Subjective Progress Note Date: 10/19/21 CHIEF COMPLAINT: Abdominal pain HISTORY OF PRESENT ILLNESS: Patient continues to have epigastric and right upper quadrant pain. Pain is controlled with pain medication. Denies any nausea or vomiting. MRCP results showing mildly dilated common bile duct without evidence of choledocholithiasis or stricture. No evidence of gallbladder wall thickening or cholelithiasis. Findings on prior ultrasound felt to represent nondistended gallbladder. Afebrile. WBC 4.22 total bili is down from 4.7-4.2 AST is down from 138-107 ALT 419 down to 349 alk phos 272 down to 265. Patient seen and examined with Dr. mcdonough PHYSICAL EXAM: VITAL SIGNS: Reviewed. GENERAL: Well-developed in no acute distress. HEENT: No sclera icterus. Extraocular movements grossly intact. Moist buccal mucosa. Head is atraumatic, normocephalic. ABDOMEN: Soft. Nondistended. Tenderness with palpation of the epigastric and right upper quadrant NEUROLOGIC: Alert and oriented. Cranial nerves II through XII grossly intact. ASSESSMENT: 1. Acute cholecystitis with cholelithiasis and borderline gallbladder wall thickening noted on ultrasound 2. Elevated LFTs and total bilirubin trending down. No evidence of choledoc holithiasis on MRCP PLAN: -Patient scheduled for laparoscopic cholecystectomy today with Dr. mcdonough -Keep patient nothing by mouth -Continue antibiotics -Continue pain medication as needed Physician [employer] note has been reviewed by physician. Signing provider agrees with the documented findings, assessment, and plan of care. Objective - Vital Signs Vital signs: Vital Signs Temp 97.8 F 10/19/21 07:00 Pulse 74 10/19/21 07:00 Resp 16 10/19/21 07:00 BP 123/74 10/19/21 07:00 Pulse Ox 98 10/19/21 07:00 Intake & Output 10/18/21 10/19/21 10/19/21 18:59 06:59 18:59 Intake Total 240 250 Balance 240 250 Intake: Intake, IV Titration 100 Amount Piperacillin-Tazobactam 3 100 .375 gm In Sodium Chloride 0.9% 100 ml @ 25 mls/hr IVPB Q8H [facility] Rx#: [id number] Oral 240 150 Other: Voiding Method Toilet # Voids 1 1 - Labs CBC & Chem 7: 10/19/21 05:41 10/19/21 05:41 Labs: Abnormal Lab Results - Last 24 Hours (Table) 10/19/21 10/19/21 Range/Units 05:41 05:41 WBC 4.22 L (4.50-10.00) X 10*3/uL RBC 4.20 L (4.40-5.60) X 10*6/uL Hct 37.4 L (39.6-50.0) % Lymphocytes # 0.85 L (0.90-5.00) X 10*3/uL Eosinophils # 0.51 H (0.04-0.35) X 10*3/uL Carbon Dioxide 27.6 H (20.0-27.5) mmol/L Anion Gap 8.40 L (10.00-18.00) mmol/L BUN 5.3 L (9.0-27.0) mg/dL BUN/Creatinine Ratio 5.30 L (12.00-20.00) Ratio Total Bilirubin 4.20 H (0.30-1.20) mg/dL AST 107 H (14-35) U/L ALT 349 H (10-49) U/L Alkaline Phosphatase 265 H (41-126) U/L Total Protein 6.0 L (6.2-8.2) g/dL Microbiology - Last 24 Hours (Table) 10/17/21 15:37 Blood Culture - Preliminary Blood No Growth after 24 hours 10/17/21 15:37 Blood Culture - Preliminary Blood No Growth after 24 hours
[2021-10-19] MEDS: KETOROLAC 15 MG/ML 1 ML VIAL IVP PRN (15:45)
[2021-10-19] MEDS: ONDANSETRON 4 MG/2 ML VIAL IVP PRN (15:48)
--- NOTE | 2021-10-19 17:40 | P.PN ---
Subjective Progress Note Date: 10/19/21 Hospital course: Patient is a 46-year-old male who presents to the emergency department with a chief complaint of upper abdominal pain for 2 days. Describes it as an aching pain in the middle upper abdomen. No chest pain. Patient had several episodes of vomiting with this. No fever or chills. Normal bowel movements, nonbloody. Of note, patient had spinal fusion 3 weeks ago. No history of acid reflux. No history of abdominal surgery. Upon arrival to the emergency department patient was found to have tachycardia with heart rate elevating to 110s and transaminitis with total bili of 2.8, AST 327, ALT 596 and alkaline phosphatase of 279. Abdominal ultrasound was completed which revealed gallbladder filled with stones with wall thickening. Patient was admitted under our services with consultation to general surgery. Physical exam: Patient was seen and fully evaluated at bedside this morning. Bilirubin remains elevated at 4.20 with AST of 107, ALT of 349, an alkaline phosphatase of 265. MRCP completed yesterday evening revealed a mildly dilated common bile duct. P tan is for patient to undergo cholecystectomy later today with Dr. Palmer, Vital signs reviewed and stable. General: Nontoxic, no distress and appears stated age. Derm: Skin warm and dry, normal coloration for ethnicity. Head: Atraumatic, normocephalic and symmetric. Eyes: EOMs intact, no lid lag, and anicteric sclera Mouth: no lip lesions, mucus membranes moist Cardiovascular: regular rate and rhythm with normal S1S2, no murmur, positive posterior tibial pulses bilaterally, and cap refill < 2 seconds. Lungs: Respirations even, regular, and unlabored on room air. Lungs CTA bilater ally, no rhonchi, no rales, no wheezing, and no accessory muscle usage. Abdominal: soft, mild epigastric tenderness upon palpation, no guarding, no appreciable organomegaly Ext: ROM intact. No gross muscle atrophy, no edema, no contractures Neuro: Speech clear, face symmetrical and CN II-XII grossly intact with no noted focal neuro deficits Psych: Alert and oriented to person, place, time, and situation. Appropriate and pleasant affect. Assessment and Plan of Care: Abdominal pain secondary to acute cholecystitis with cholelithiasis Transaminitis likely secondary to acute cholecystitis Hyperbilirubinemia -Gen. surgery following, plans for cholecystectomy later today -NPO pending further recommendations from general surgery. -Symptomatic care and pain management -IV antibiotics Zosyn -Continue gentle IV fluid hydration -Continued close monitoring with repeat a.m. labs. Chronic ADHD, Depression Hold meds for now as he is nothing by mouth CODE STATUS: Full code DVT prophylaxis: Lovenox Discussed with: Patient and RN Anticipated discharge date: Clinical course to determine, likely tomorrow morning Anticipated discharge place: Home A total of 35 minutes was spent on the care of this complex patient more than 50% of the time was spent in counseling and care coordination. Objective - Vital Signs Vital signs: Vital Signs Temp 97.8 F 10/19/21 07:00 Pulse 74 10/19/21 07:00 Resp 16 10/19/21 07:00 BP 123/74 10/19/21 07:00 Pulse Ox 98 10/19/21 07:00 Intake & Output 10/18/21 10/19/21 10/19/21 18:59 06:59 18:59 Intake Total 240 250 Balance 240 250 Intake: Intake, IV Titration 100 Amount Piperacillin-Tazobactam 3 100 .375 gm In Sodium Chloride 0.9% 100 ml @ 25 mls/hr IVPB Q8H [facility] Rx#: [id number] Oral 240 150 Other: Voiding Method Toilet # Voids 1 1 - Labs CBC & Chem 7: 10/19/21 05:41 10/19/21 05:41 Labs: Abnormal Lab Results - Last 24 Hours (Table) 10/18/21 10/18/21 Range/Units 06:26 06:26 RBC 4.24 L (4.40-5.60) X 10*6/uL Hct 38.2 L (39.6-50.0) % Lymphocytes # 0.51 L (0.90-5.00) X 10*3/uL Eosinophils # 0.40 H (0.04-0.35) X 10*3/uL BUN 6.6 L (9.0-27.0) mg/dL BUN/Creatinine Ratio 6.60 L (12.00-20.00) Ratio Total Bilirubin 4.70 H (0.30-1.20) mg/dL AST 138 H (14-35) U/L ALT 419 H (10-49) U/L Alkaline Phosphatase 272 H (41-126) U/L Total Protein 6.0 L (6.2-8.2) g/dL Microbiology - Last 24 Hours (Table) 10/17/21 15:37 Blood Culture - Preliminary Blood No Growth after 24 hours 10/17/21 15:37 Blood Culture - Preliminary Blood No Growth after 24 hours
[2021-10-19] MEDS ORDERED: MIDAZOLAM 2 MG/2 ML VIAL ONE (20:16)
[2021-10-19] MEDS ORDERED: LIDOCAINE 2% INJ 20 MG/ML (2 ML VIAL) ONE (20:16)
[2021-10-19] MEDS ORDERED: DEXAMETHASONE SOD PHOSPHATE 10 MG/ML 1 ML VIAL ONE (20:16)
[2021-10-19] MEDS ORDERED: fentaNYL (PF) 50 MCG/ML 2 ML AMP ONE (20:16)
[2021-10-19] MEDS ORDERED: PROPOFOL 10 MG/ML 20 ML VIAL IV ONE (20:16)
[2021-10-19] MEDS ORDERED: NEOSTIGMINE 1 MG/ML 10 ML VIAL ONE (20:16)
[2021-10-19] MEDS ORDERED: ROCURONIUM 10 MG/ML (5 ML VIAL) IV ONE (20:16)
[2021-10-19] MEDS ORDERED: HYDROmorphone (PF) 1 MG/ML ONE (20:16)
[2021-10-19] MEDS ORDERED: HEPARIN SODIUM,PORCINE 5,000 UNIT/ML 1 ML VIAL ONE (20:16)
[2021-10-19] MEDS ORDERED: KETOROLAC 15 MG/ML 1 ML VIAL ONE (20:16)
[2021-10-19] MEDS ORDERED: SUCCINYLCHOLINE CHLORIDE 100 MG/5 ML SYR IV ONE (20:16)
[2021-10-19] MEDS ORDERED: ONDANSETRON 4 MG/2 ML VIAL ONE (20:16)
[2021-10-19] MEDS ORDERED: GLYCOPYRROLATE 0.2 MG/ML 2 ML VIAL ONE (20:16)
[2021-10-19] MEDS ORDERED: LACTATED RINGERS 1,000 ML IV ONE (20:20)
[2021-10-19] MEDS ORDERED: SODIUM CHLORIDE 0.9% 100 ML with ceFAZolin 2,000 MG IV ONE ×2 (20:20)
[2021-10-19] MEDS ORDERED: BUPIVACAINE (PF) 0.25% 30 ML VIAL SQ ONE (20:48)
--- NOTE | 2021-10-19 21:06 | P.OP ---
Date of Procedure: 10/19/21 Preoperative Diagnosis: Cholecystitis Postoperative Diagnosis: Cholecystitis Procedure(s) Performed: Laparoscopic cholecystectomy Anesthesia: RAYMUNDO Surgeon: Kwasi Palmer Estimated Blood Loss (ml): 5 Pathology: other (Gallbladder) Condition: stable Disposition: PACU Description of Procedure: The patient was placed on the operating table. The patient received a general endotracheal tube anesthesia. The patients abdomen was prepped and draped in the usual sterile fashion. Through an infraumbilical stab incision, the fascia of the anterior abdominal wall was grasped with a pair of Kochers and then the Veress needle was placed in the peritoneal cavity. Position of the Veress needle was confirmed with positive drop test. The abdomen was then insufflated. After adequate insufflation, the 10 mm trocar was placed in the peritoneal cavity. Following this the laparoscope was placed in the peritoneal cavity. The patient was placed in the head-up, right side up position and then a 5 mm trocar was placed in the right lateral and right subcostal position under direct visualization. A 8 mm trocar was placed in the epigastric position. The gallbladder was grasped in the fundus and infundibulum. Traction on the gallbladder was placed in the lateral and the cephalad positions. The triangle of Calot was visualized.. The cystic duct was bluntly dissected until the union of the cystic duct and common bile duct was seen. A critical view of safety was achieved. The cystic duct was then divided and sealed with the Harmonic scissors. A PDS Endoloop was then placed throughout the cystic duct stump. The cystic artery divided and sealed with the Harmonic scissors. The gallbladder was then removed from the liver bed using Harmonic scissors. The gallbladder was then extracted through the epigastric port site. Operative field was checked for any bleeding spots and Harmonic scissors was used to coagulate the liver bed. The abdomen was irrigated. The trocars were removed. The skin was closed using interrupted 3-0 Vicryl suture. Dermabond dressing were applied. The patient tolerated the procedure well.
[2021-10-19] MEDS ORDERED: HYDROmorphone 0.5 MG/0.5 ML SYRINGE IVP ONE ×3 (21:32→21:53)
[2021-10-20] MEDS: PIPERACILLIN-TAZOBACTAM 3.375 GM in SODIUM CHLORIDE 0.9% 100 ML IVPB SCH ×3 (02:14→19:01)
[2021-10-20] MEDS: HYDROmorphone 0.5 MG/0.5 ML SYRINGE IVP PRN ×3 (02:17→08:47)
[2021-10-20] MEDS ORDERED: HYDROcodone/APAP 5-325MG 1 EACH TAB PO PRN (08:16)
[2021-10-20] MEDS: ENOXAPARIN 40 MG/0.4 ML SYRINGE SQ SCH (08:48)
[2021-10-20] MEDS ORDERED: ENOXAPARIN 40 MG/0.4 ML SYRINGE SQ SCH (09:00)
[2021-10-20] MEDS: SODIUM CHLORIDE 0.9% 1,000 ML IV SCH ×3 (10:23→19:01)
[2021-10-20 10:26] LABS: ALT 374 U/L (4-49); AST 175 U/L (17-59); African American GFR (CKD) >90 (>60 ml/min/1.73 sqM); Albumin 3.9 g/dL (3.5-5.0); Albumin/Globulin Ratio 1.6; Alkaline Phosphatase 253 U/L (38-126); Anion Gap 4 mmol/L; Blood Urea Nitrogen 8 mg/dL (9-20); Calcium 8.8 mg/dL (8.4-10.2); Carbon Dioxide 30 mmol/L (22-30); Chloride 104 mmol/L (98-107); Globulin 2.5 g/dL; Glucose 111 mg/dL (74-99); Non-African American GFR(CKD) >90 (>60 ml/min/1.73 sqM); Potassium 4.3 mmol/L (3.5-5.1); Sodium 138 mmol/L (137-145); Total Bilirubin 5.4 mg/dL (0.2-1.3); Total Protein 6.4 g/dL (6.3-8.2)
[2021-10-20] MEDS: HYDROmorphone 1 MG/ML 1 ML SYRINGE IVP PRN ×4 (11:43→21:53)
[2021-10-20] MEDS: KETOROLAC 15 MG/ML 1 ML VIAL IVP PRN (11:44)
--- NOTE | 2021-10-20 14:57 | P.PN ---
Subjective Progress Note Date: 10/20/21 CHIEF COMPLAINT: Abdominal pain HISTORY OF PRESENT ILLNESS: Patient is status post laparoscopic cholecystectomy postop day #1. Patient reporting increase in abdominal pain this morning. He did eat a few bites of his pancakes. He did have some nausea. Denies any vomiting. He is reporting some flatus. His liver enzymes and total bilirubin have increased. Total bilirubin 4.2 up to 5.4 AST 107 up to 175 ALT 349-374 alk phos 265 down 253. Afebrile. Patient did have decrease in oxygen saturation at 87% on room air. Incentive spirometer encouraged. Last set of vitals shows room air and 99% PHYSICAL EXAM: VITAL SIGNS: Reviewed. GENERAL: Well-developed in no acute distress. HEENT: No sclera icterus. Extraocular movements grossly intact. Moist buccal mucosa. Head is atraumatic, normocephalic. ABDOMEN: Soft. Nondistended. Tenderness with palpation of the right-sided the abdomen. Incision sites clean dry and intact NEUROLOGIC: Alert and oriented. Cranial nerves II through XII grossly intact. ASSESSMENT: 1. Acute cholecystitis with cholelithiasis status post laparoscopic chol ecystectomy 2. Elevated LFTs and total bilirubin are trending upwards PLAN: -Repeat CMP in a.m. -If liver enzymes and total bilirubin continue to increase we'll consult GI service for possible ERCP -Place patient on clear liquid diet -Continue IV fluids -Continue antibiotics -Pain medications have been adjusted. Toradol has been changed to scheduled. [place] has been added. Continue Dilaudid as needed -Continue to monitor -DVT prophylaxis Meryl Physician Title Camera Operator note has been reviewed by physician. Signing provider agrees with the documented findings, assessment, and plan of care. I have personally seen and examined the patient, reviewed the WELL DRILLER /PAs history, exam and MDM and agree with the assessment and plan as written. Based on total visit time, I have performed more than 50% of the visit. As above: Patient has increased pain today compared to preop. Seems slightly worse than last night. Some nausea. Continue clear liquid diet. Recheck labs tomorrow. If liver enzymes do not trend downward we'll consult GI for possible ERCP. Objective - Vital Signs Vital signs: Vital Signs Temp 97.7 F 10/20/21 07:00 Pulse 74 10/20/21 07:00 Resp 18 10/20/21 09:00 BP 137/83 10/20/21 07:00 Pulse Ox 99 10/20/21 07:00 Intake & Output 10/19/21 10/20/21 10/20/21 18:59 06:59 18:59 Intake Total 1140 1100 Output Total 1 10 Balance 1139 1090 Intake: IV 500 Intake, IV Titration 1140 Amount Piperacillin-Tazobactam 3 100 .375 gm In Sodium Chloride 0.9% 100 ml @ 25 mls/hr IVPB Q8H [facility] Rx#: [id number] Sodium Chloride 0.9% 1, 1040 000 ml @ 130 mls/hr IV . Q7H42M [facility] Rx#:[id number] Oral 600 Output: Urine 1 Estimated Blood Loss 10 Other: Voiding Method Toilet Toilet - Labs CBC & Chem 7: 10/19/21 05:41 10/20/21 09:50 Labs: Abnormal Lab Results - Last 24 Hours (Table) 10/20/21 Range/Units 09:50 BUN 8 L (9-20) mg/dL Glucose 111 H (74-99) mg/dL Total Bilirubin 5.4 H (0.2-1.3) mg/dL AST 175 H (17-59) U/L ALT 374 H (4-49) U/L Alkaline Phosphatase 253 H (38-126) U/L Microbiology - Last 24 Hours (Table) 10/17/21 15:37 Blood Culture - Preliminary Blood No Growth after 48 hours 10/17/21 15:37 Blood Culture - Preliminary Blood No Growth after 48 hours
--- NOTE | 2021-10-20 16:41 | P.PN ---
Subjective Progress Note Date: 10/20/21 Hospital course: Patient is a 46-year-old male who presents to the emergency department with a chief complaint of upper abdominal pain for 2 days. Describes it as an aching pain in the middle upper abdomen. No chest pain. Patient had several episodes of vomiting with this. No fever or chills. Normal bowel movements, nonbloody. Of note, patient had spinal fusion 3 weeks ago. No history of acid reflux. No history of abdominal surgery. Upon arrival to the emergency department patient was found to have tachycardia with heart rate elevating to 110s and transaminitis with total bili of 2.8, AST 327, ALT 596 and alkaline phosphatase of 279. Lipase normal findings at 47. Abdominal ultrasound was completed which revealed gallbladder filled with stones with wall thickening. Patient was admitted under our services with consultation to general surgery. MRCP completed on 10/18/21 which revealed a mildly dilated common bile duct. Patient underwent cholecystectomy 10/19/[address] Palmer. Physical exam: Patient was seen and fully evaluated at bedside this morning. He is postop day 1 status post laparoscopic cholecystectomy and is complaining of increased diffuse abdominal pain accompanied by nausea and hiccups. Patient denies any episodes of vomiting, states that he tolerated a few bites of his pancakes for breakfast this morning but otherwise has had no appetite. Patient has been ambulatory in room, has passed flatus but denies bowel movement. Upon evaluation of labs, patient had further elevation of bilirubin, now 5.4 with AST of 175, ALT of 374, and alkaline phosphatase of 253. This was discussed with general surgery team and they are recommending continued monitoring with repeat liver profile with a.m. labs and if further elevation in bilirubin, GI consult will be placed for possible ERCP. This was discussed with patient in detail this morning. It was then brought to my knowledge that pt's had some concerns regarding waiting for procedure and evaluation by GI, I then went back to bedside this evening and spoke with patient regarding his concerns and all questions answered at this time. Pt denied having any further needs, concerns or complaints at this time. Will continue to monitor. Vital signs reviewed and stable. General: Nontoxic, no distress and appears stated age. Derm: Skin warm and dry, normal coloration for ethnicity. Head: Atraumatic, normocephalic and symmetric. Eyes: EOMs intact, no lid lag, and anicteric sclera Mouth: no lip lesions, mucus membranes moist Cardiovascular: regular rate and rhythm with normal S1S2, no murmur, positive posterior tibial pulses bilaterally, and cap refill < 2 seconds. Lungs: Respirations even, regular, and unlabored on room air. Lungs CTA bilaterally, no rhonchi, no rales, no wheezing, and no accessory muscle usage. Abdominal: soft, mild epigastric tenderness upon palpation, no guarding, no appreciable organomegaly Ext: ROM intact. No gross muscle atrophy, no edema, no contractures Neuro: Speech clear, face symmetrical and CN II-XII grossly intact with no noted focal neuro deficits Psych: Alert and oriented to person, place, time, and situation. Appropriate and pleasant affect. Assessment and Plan of Care: Abdominal pain secondary to acute cholecystitis with cholelithiasis Transaminitis likely secondary to acute cholecystitis Hyperbilirubinemia, worsening Status post laparoscopic cholecystectomy on 10/19/21 -Gen. surgery following, patient underwent laparoscopic cholecystectomy on 10/19/21 -Postop day 1, Patient had further elevation of bilirubin, now 5.4 with AST of 175, ALT of 374, and alkaline phosphatase of 253. This was discussed with general surgery team and they are recommending continued monitoring with repeat liver profile with a.m. labs and if further elevation in bilirubin, GI consult will be placed for likely ERCP. -Clear liquid, advance as recommended by general surgery team. -Symptomatic care and pain management -IV antibiotics Zosyn -Continue gentle IV fluid hydration -Continued close monitoring with repeat a.m. labs. Chronic ADHD, Depression Hold meds for now as he is nothing by mouth CODE STATUS: Full code DVT prophylaxis: Lovenox Discussed with: Patient and RN Anticipated discharge date: Clinical course to determine, likely tomorrow morning Anticipated discharge place: Home A total of 35 minutes was spent on the care of this complex patient more than 50% of the time was spent in counseling and care coordination. Objective - Vital Signs Vital signs: Vital Signs Temp 97.5 F L 10/20/21 15:00 Pulse 72 10/20/21 15:00 Resp 18 10/20/21 15:27 BP 145/85 10/20/21 15:00 Pulse Ox 98 10/20/21 15:00 Intake & Output 05/17/22 05/18/22 05/18/22 18:59 06:59 18:59 Intake Total 1140 1100 Output Total 1 10 Balance 1139 1090 Intake: IV 500 Intake, IV Titration 1140 Amount Piperacillin-Tazobactam 3 100 .375 gm In Sodium Chloride 0.9% 100 ml @ 25 mls/hr IVPB Q8H [facility] Rx#: [id number] Sodium Chloride 0.9% 1, 1040 000 ml @ 130 mls/hr IV . Q7H42M [facility] Rx#:[id number] Oral 600 Output: Urine 1 Estimated Blood Loss 10 Other: Voiding Method Toilet Toilet # Voids 1 - Labs CBC & Chem 7: 10/19/21 05:41 10/20/21 09:50 Labs: Abnormal Lab Results - Last 24 Hours (Table) 10/20/21 Range/Units 09:50 BUN 8 L (9-20) mg/dL Glucose 111 H (74-99) mg/dL Total Bilirubin 5.4 H (0.2-1.3) mg/dL AST 175 H (17-59) U/L ALT 374 H (4-49) U/L Alkaline Phosphatase 253 H (38-126) U/L Microbiology - Last 24 Hours (Table) 10/17/21 15:37 Blood Culture - Preliminary Blood No Growth after 48 hours 10/17/21 15:37 Blood Culture - Preliminary Blood No Growth after 48 hours
[2021-10-20] MEDS ORDERED: NON FORMULARY DRUG (Tadalafil [Tadalafil] 5 MG Tablet) PO PRN (17:18)
[2021-10-20] MEDS: KETOROLAC 15 MG/ML 1 ML VIAL IVP SCH ×2 (17:57→22:53)
[2021-10-20] MEDS: ONDANSETRON 4 MG/2 ML VIAL IVP PRN (22:52)
[2021-10-21] MEDS: PIPERACILLIN-TAZOBACTAM 3.375 GM in SODIUM CHLORIDE 0.9% 100 ML IVPB SCH ×2 (04:03→10:56)
[2021-10-21] MEDS: KETOROLAC 15 MG/ML 1 ML VIAL IVP SCH ×3 (05:02→17:48)
[2021-10-21] MEDS: HYDROmorphone 0.5 MG/0.5 ML SYRINGE IVP PRN ×3 (05:02→17:49)
[2021-10-21] MEDS: ENOXAPARIN 40 MG/0.4 ML SYRINGE SQ SCH (07:32)
[2021-10-21] MEDS: VENLAFAXINE HCL ER 75 MG CAP PO SCH (08:24)
[2021-10-21 09:23] LABS: Basophils # (A) 0.04 X 10*3/uL (0.00-0.10); Basophils % (A) 0.9 %; Eosinophils # (A) 0.64 X 10*3/uL (0.04-0.35); Eosinophils % (A) 13.7 %; HCT 35.5 % (39.6-50.0); HGB 12.3 g/dL (13.0-17.0); Immature Grans, Automated 0.6 %; Lymphocytes % (A) 17.1 %; MCH 30.7 pg (27.0-32.0); MCHC 34.6 g/dL (32.0-37.0); MCV 88.5 fL (80.0-97.0); Mean Platelet Volume 10.8 fL (9.5-12.2); Monocytes # (A) 0.44 X 10*3/uL (0.20-1.00); Monocytes % (A) 9.4 %; NRBC Per 100 WBC 0 /100 WBCS (0.0-0.0); Neutrophils # (A) 2.73 X 10*3/uL (1.80-7.70); Neutrophils % (A) 58.3 %; Platelet Count 243 X 10*3/uL (140-440); RBC 4.01 X 10*6/uL (4.40-5.60); RDW 12.6 % (11.5-14.5); WBC 4.68 X 10*3/uL (4.50-10.00)
[2021-10-21 09:35] LABS: Albumin 3.8 g/dL (3.8-4.9); Albumin/Globulin Ratio 1.9 (1.60-3.17); Anion Gap 7.7 mmol/L (10.00-18.00); BUN/Creat Ratio 6.88 Ratio (12.00-20.00); Blood Urea Nitrogen 5.5 mg/dL (9.0-27.0); Calcium 8.9 mg/dL (8.7-10.3); Carbon Dioxide 28.3 mmol/L (20.0-27.5); Non-African American GFR(CKD) 107.9 (60.0-200.0); Total Bilirubin 5.4 mg/dL (0.30-1.20); Total Protein 5.8 g/dL (6.2-8.2)
[2021-10-21] MEDS: SODIUM CHLORIDE 0.9% 1,000 ML IV SCH ×2 (10:05→10:56)
[2021-10-21] MEDS: ONDANSETRON 4 MG/2 ML VIAL IVP PRN (11:04)
--- NOTE | 2021-10-21 14:44 | P.PN ---
Subjective Progress Note Date: 10/21/21 CHIEF COMPLAINT: Abdominal pain HISTORY OF PRESENT ILLNESS: Patient is status post laparoscopic cholecystectomy postop day #2. Patient complaining of abdominal pain mostly in the epigastric area. He rates his pain about a 5 out of 10. Which is slightly less than yesterday. Patient overall feels very weak and tired. He is currently nothing by mouth by medicine service. Afebrile WBC is 4.68 hemoglobin 12.3 sodium 140 potassium is 4 total bilirubin 5.4 AST has gone down from 175-148 ALT 374 down t o 340 alk phos 253 up to 257. PHYSICAL EXAM: VITAL SIGNS: Reviewed. GENERAL: Well-developed in no acute distress. HEENT: No sclera icterus. Extraocular movements grossly intact. Moist buccal mucosa. Head is atraumatic, normocephalic. ABDOMEN: Soft. Nondistended. Tenderness with palpation of the right-sided the abdomen. Incision sites clean dry and intact NEUROLOGIC: Alert and oriented. Cranial nerves II through XII grossly intact. ASSESSMENT: 1. Acute cholecystitis with cholelithiasis status post laparoscopic cholecystectomy 2. Possible choledocholithiasis with Elevated LFTs and total bilirubin PLAN: -Consult GI service for possible ERCP -Repeat CMP in a.m. -Continue clear liquids -Continue IV fluids -Continue antibiotics -Continue pain medication as needed -Continue to monitor -DVT prophylaxis Lovenox Physician National Investigative Producer note has been reviewed by physician. Signing provider agrees with the documented findings, assessment, and plan of care. I have personally seen and examined the patient, reviewed the ASSOCIATE DIRECTOR OF BIOSTATISTICS /PAs history, exam and MDM and agree with the assessment and plan as written. Based on total visit time, I have performed more than 50% of the visit. As above: Patient's labs have not improved. His pain is better however. He feels tired. He is afebrile without tachycardia. White blood cell count is normal. Appreciate GI evaluation. Await repeat labs tomorrow. Objective - Vital Signs Vital signs: Vital Signs Temp 98.4 F 10/21/21 07:00 Pulse 73 10/21/21 07:00 Resp 18 10/21/21 14:00 BP 143/90 10/21/21 07:00 Pulse Ox 96 10/21/21 07:00 Intake & Output 05/18/22 05/19/22 05/19/22 18:59 06:59 18:59 Intake Total 500 Output Total 100 Balance 400 Intake: Oral 500 Output: Emesis 100 Other: Voiding Method Toilet Toilet # Voids 1 1 - Labs CBC & Chem 7: 10/21/21 06:16 10/21/21 06:16 Labs: Abnormal Lab Results - Last 24 Hours (Table) 10/21/21 10/21/21 Range/Units 06:16 06:16 RBC 4.01 L (4.40-5.60) X 10*6/uL Hgb 12.3 L (13.0-17.0) g/dL Hct 35.5 L (39.6-50.0) % Lymphocytes # 0.80 L (0.90-5.00) X 10*3/uL Eosinophils # 0.64 H (0.04-0.35) X 10*3/uL Carbon Dioxide 28.3 H (20.0-27.5) mmol/L Anion Gap 7.70 L (10.00-18.00) mmol/L BUN 5.5 L (9.0-27.0) mg/dL BUN/Creatinine Ratio 6.88 L (12.00-20.00) Ratio Total Bilirubin 5.40 H (0.30-1.20) mg/dL AST 148 H (14-35) U/L ALT 340 H (10-49) U/L Alkaline Phosphatase 257 H (41-126) U/L Total Protein 5.8 L (6.2-8.2) g/dL Microbiology - Last 24 Hours (Table) 10/17/21 15:37 Blood Culture - Preliminary Blood No Growth after 72 hours 10/17/21 15:37 Blood Culture - Preliminary Blood No Growth after 72 hours
--- NOTE | 2021-10-21 15:19 | P.CONS ---
History of Present Illness - Reason for Consult Consult date: 10/21/21 Possible choledocholithiasis Requesting physician: Helena Helms - Chief Complaint Abdominal pain - History of Present Illness This is a 46-year-old male who presented to the emergency room with complaints of epigastric abdominal pain for 4 days. It was associated with nausea and vomiting. He reports that symptoms started on Monday had improved slightly and then on Monday evening after he ate his abdominal pain worsened. Gallbladder ultrasound had demonstrated collapse gallbladder filled with stones and seems to show borderline wall thickening. Correlate for chronic cholecystitis and possible acute cholecystitis. Positive Patton sign. Bile duct largely obscured. Short segment of the visual lights duct measures normal caliber at 3 mm. Patient's LFTs and total bilirubin were elevated on admission. He underwent an MRCP that showed mildly dilated common bile duct without evidence of leak.cholelithiasis or stricture. No evidence of gallbladder wall thickening or cholelithiasis. Findings on prior ultrasound felt to represent nondistended gallbladder. The patient underwent laparoscopic copic cholecystectomy on 10/19/[address] Palmer for cholecystitis. Gallbladder pathology reports acalculous chronic cholecystitis with focal cholesterolosis. Patient has continued elevated total bilirubin and LFTs. Gastroenterology was consulted for possible choledochal lithiasis. Patient denies any recent new medications, no history of underlying liver disease or alcoholism. States he still has abdominal pain however states it is hard to describe as he is getting Dilaudid so he is not sure if it's improved or not. Still has some nausea but n o vomiting.patient has been afebrile. Today's labs WBC 4.68 hemoglobin 12.3 hematocrit 35 platelet count 243,000 total bilirubin 5.4 AST 148 ALT 340 alkaline phosphatase 257 Review of Systems REVIEW OF SYSTEMS: CARDIOPULMONARY: No chest pain or shortness of breath. Gastrointestinal: Abdominal pain, epigastric right upper quadrant region. Nausea, no vomiting. No hematemesis, coffee-ground emesis. No rectal bleeding, or melena. GENITOURINARY: No dysuria or hematuria. MUSCULOSKELETAL: Reports normal range of motion. SKIN: No rashes. No jaundice. ENDOCRINE: No chills, fevers. No excessive weight gain or loss. No polydipsia or polyuria. PSYCHIATRIC: Unremarkable. NEUROLOGY: No change in mental status. Denies dizziness, headache. ENT: Vision unremarkable. CONSTITUTIONAL: No recent weight loss. No fever, chills, night sweats. Past Medical History Past Medical History: No Reported History Additional Past Medical History / Comment(s): boderline htn and high cholestrol History of Any Multi-Drug Resistant Organisms: None Reported Past Surgical History: Back Surgery Additional Past Surgical History / Comment(s): septalplasty Past Anesthesia/Blood Transfusion Reactions: No Reported Reaction Past Psychological History: ADD/ADHD, Depression Smoking Status: Never smoker Past Alcohol Use History: Occasional Past Drug Use History: None Reported - Past Family History Father Additional Family Medical History / Comment(s): no health problems Medications and Allergies Home Medications Medication Instructions Recorded Confirmed Type Venlafaxine HCl [Effexor XR] 75 mg PO DAILY 10/05/20 10/17/21 History tadalafiL 5 mg PO DAILY PRN 10/05/20 10/17/21 History Dextroamphetamine/Amphetamine 25 mg PO DAILY 10/17/21 10/17/21 History [Adderall Xr] Ibuprofen [Motrin] 800 mg PO TID PRN 10/17/21 10/17/21 History Allergies Allergy/AdvReac Type Severity Reaction Status Date / Time No Known Allergies Allergy Verified 10/17/21 14:49 Physical Exam Vitals: Vital Signs Temp Pulse Pulse Resp BP Pulse Ox 10/21/21 07:45 18 10/21/21 07:00 98.4 F 73 16 143/90 96 10/21/21 01:13 97.9 F 73 18 131/77 95 10/21/21 00:02 72 72 18 10/20/21 19:15 98.1 F 72 16 143/86 95 10/20/21 15:27 18 10/20/21 15:00 97.5 F L 72 18 145/85 98 Intake and Output 10/20/21 10/21/21 10/21/21 22:59 06:59 14:59 Intake Total 500 Output Total 100 Balance -100 500 Intake: Oral 500 Output: Emesis 100 Other: Voiding Method Toilet Toilet General appearance: The patient is alert, oriented, appears in no acute distress. HET: Head is normocephalic and atraumatic. Conjunctiva pink. Sclera anicteric. Neck: Supple without lymphadenopathy. Trachea midline. Heart: S1 S2. Regular rate and rhythm. Lungs: Clear to auscultation. Abdomen: Soft, tender to palpation, incision sites well approximated, nondistended. No guarding or rigidity. Skin: No rashes. No jaundice. Extremities: Normal skin color and turgor. No pedal edema. Neurological: No focal deficits. Alert and oriented x3. Results CBC & Chem 7: 10/21/21 06:16 10/21/21 06:16 Labs: Abnormal Lab Results - Last 24 Hours (Table) 10/21/21 10/21/21 Range/Units 06:16 06:16 RBC 4.01 L (4.40-5.60) X 10*6/uL Hgb 12.3 L (13.0-17.0) g/dL Hct 35.5 L (39.6-50.0) % Lymphocytes # 0.80 L (0.90-5.00) X 10*3/uL Eosinophils # 0.64 H (0.04-0.35) X 10*3/uL Carbon Dioxide 28.3 H (20.0-27.5) mmol/L Anion Gap 7.70 L (10.00-18.00) mmol/L BUN 5.5 L (9.0-27.0) mg/dL BUN/Creatinine Ratio 6.88 L (12.00-20.00) Ratio Total Bilirubin 5.40 H (0.30-1.20) mg/dL AST 148 H (14-35) U/L ALT 340 H (10-49) U/L Alkaline Phosphatase 257 H (41-126) U/L Total Protein 5.8 L (6.2-8.2) g/dL Microbiology - Last 24 Hours (Table) 10/17/21 15:37 Blood Culture - Preliminary Blood No Growth after 72 hours 10/17/21 15:37 Blood Culture - Preliminary Blood No Growth after 72 hours Comments: Abdominal ultrasound states markedly limited exam. The clamps gallbladder is filled with stones and seems to show borderline wall thickening. Correlate for chronic cholecystitis. However given positive Patton's sign and concern for early acute cholecystitis, HIDA scan can be performed. Bile duct largely obscured. Short segment of visualized measures normal caliber at 3 mm. MRCP reports mildly dilated common bile duct without evidence of choledocholithiasis or stricture. No evidence of gallbladder wall thickening or Alejandra lithiasis. Findings on prior ultrasound felt to represent nondistended gallbladder. Assessment and Plan (1) Elevated LFTs Narrative/Plan: This is a 46-year-old male who presented to the emergency department with complaints of epigastric abdominal pain with nausea and vomiting. He was noted to have elevated LFTs as well as total bilirubin. He underwent a gallbladder ultrasound that showed cholecystitis and cholelithiasis however underwent MRCP w hich was overall normal. Patient underwent laparoscopic cholecystitis on 10/19/2021 with findings of chronic cholecystitis, acalculous. He continues to have elevated total bilirubin and has actually increased to 5.4 from 2.3 on admission. LFTs continued to be stable and slightly improved. Patient still with abdominal pain mostly in the right upper quadrant epigastric region. He has some nausea but no vomiting. He is taking Dilaudid feels that she may be related to that. There is possibility of choledocholithiasis, will repeat labs in the morning. Discussed with the patient and risks of proceeding with ERCP and would like to hold off unless necessary. Current Visit: Yes Status: Acute Code(s): R79.89 - OTHER SPECIFIED ABNORMAL FINDINGS OF BLOOD CHEMISTRY SNOMED Code(s): 433565459 (2) Cholecystitis Current Visit: Yes Status: Acute Code(s): K81.9 - CHOLECYSTITIS, UNSPECIFIED SNOMED Code(s): 14427702 Plan: 1. Continue symptomatic and supportive care 2. Patient may have clear liquid diet, nothing by mouth after midnight 3. Hold Lovenox 4. PT INR, CBC, CMP, amylase and lipase ordered 5. Continue pain management per primary medicine and general surgery 6. Further recommendations based on the labs and clinical course Thank you for this consultation, we will continue to follow. Dr. Froilan Paul I agree with the dictator's note, documented as a scribe by Yaritza Mackey.
--- NOTE | 2021-10-21 16:58 | P.PN ---
Subjective Progress Note Date: 10/21/21 Hospital course: Patient is a 46-year-old male who presents to the emergency department with a chief complaint of upper abdominal pain for 2 days. Describes it as an aching pain in the middle upper abdomen. No chest pain. Patient had several episodes of vomiting with this. No fever or chills. Normal bowel movements, nonbloody. Of note, patient had spinal fusion 3 weeks ago. No history of acid reflux. No history of abdominal surgery. Upon arrival to the emergency department patient was found to have tachycardia with heart rate elevating to 110s and transaminitis with total bili of 2.8, AST 327, ALT 596 and alkaline phosphatase of 279. Lipase normal findings at 47. Abdominal ultrasound was completed which revealed gallbladder filled with stones with wall thickening. Patient was admitted under our services with consultation to general surgery. MRCP completed on 10/18/21 which revealed a mildly dilated common bile duct. Patient underwent cholecystectomy 10/19/[address] Palmer. Physical exam: Patient was seen and fully evaluated at bedside this morning. He is postop day 2 status post laparoscopic cholecystectomy and continues to have diffuse abdominal discomfort but does report mild improvement. He denies any nausea, vomiting, or any other complaints. Patient does report he has decreased his use of pain medications and reports last time having nausea and vomiting was right after receiving Dilaudid and he correlates this as being a side effect of the medication. Morning labs revealed persistent hyperbilirubinemia with total bili of 5.4 unchanged from yesterday. Transaminitis slowly improving with AST of 148, ALT 340, and alkaline phosphatase of 257. Consult was placed to gastroenterology to evaluate for possible ERCP. Vital signs reviewed and stable. General: Nontoxic, no distress and appears stated age. Derm: Skin warm and dry, normal coloration for ethnicity. Head: Atraumatic, normocephalic and symmetric. Eyes: EOMs intact, no lid lag, and anicteric sclera Mouth: no lip lesions, mucus membranes moist Cardiovascular: regular rate and rhythm with normal S1S2, no murmur, positive posterior tibial pulses bilaterally, and cap refill < 2 seconds. Lungs: Respirations even, regular, and unlabored on room air. Lungs CTA bilatera lly, no rhonchi, no rales, no wheezing, and no accessory muscle usage. Abdominal: soft, mild epigastric tenderness upon palpation, no guarding, no appreciable organomegaly Ext: ROM intact. No gross muscle atrophy, no edema, no contractures Neuro: Speech clear, face symmetrical and CN II-XII grossly intact with no noted focal neuro deficits Psych: Alert and oriented to person, place, time, and situation. Appropriate and pleasant affect. Assessment and Plan of Care: Abdominal pain secondary to acute cholecystitis with cholelithiasis Transaminitis Hyperbilirubinemia, worsening Status post laparoscopic cholecystectomy on 10/19/21 -Gen. surgery following, patient underwent laparoscopic cholecystectomy on 10/19/21 -Postop day 2, Patient continues to have hyperbilirubinemia with bilirubin of 5. 4 and transaminitis with AST of 148, ALT 340, and alkaline phosphatase of 257. -Consult placed to gastroenterology for possible ERCP. -Clear liquid, NPO at midnight. -Symptomatic care and pain management -Patient completed 5 day course of IV antibiotics with Zosyn. -Patient was treated with IV fluid hydration -Continued close monitoring with repeat a.m. labs. Chronic ADHD, Depression Hold meds for now as he is nothing by mouth CODE STATUS: Full code DVT prophylaxis: Lovenox Discussed with: Patient and RN Anticipated discharge date: Clinical course to determine, likely tomorrow morning Anticipated discharge place: Home A total of 34 minutes was spent on the care of this complex patient more than 50% of the time was spent in counseling and care coordination. Objective - Vital Signs Vital signs: Vital Signs Temp 98.4 F 10/21/21 07:00 Pulse 73 10/21/21 07:00 Resp 18 10/21/21 07:45 BP 143/90 10/21/21 07:00 Pulse Ox 96 10/21/21 07:00 Intake & Output 10/20/21 10/21/21 10/21/21 18:59 06:59 18:59 Intake Total 500 Output Total 100 Balance 400 Intake: Oral 500 Output: Emesis 100 Other: Voiding Method Toilet Toilet # Voids 1 - Labs CBC & Chem 7: 10/21/21 06:16 10/21/21 06:16 Labs: Abnormal Lab Results - Last 24 Hours (Table) 10/20/21 Range/Units 09:50 BUN 8 L (9-20) mg/dL Glucose 111 H (74-99) mg/dL Total Bilirubin 5.4 H (0.2-1.3) mg/dL AST 175 H (17-59) U/L ALT 374 H (4-49) U/L Alkaline Phosphatase 253 H (38-126) U/L Microbiology - Last 24 Hours (Table) 10/17/21 15:37 Blood Culture - Preliminary Blood No Growth after 72 hours 10/17/21 15:37 Blood Culture - Preliminary Blood No Growth after 72 hours
[2021-10-22] MEDS: KETOROLAC 15 MG/ML 1 ML VIAL IVP SCH ×4 (00:36→18:13)
[2021-10-22 07:22] LABS: ALT 354 U/L (4-49); AST 171 U/L (17-59); African American GFR (CKD) >90 (>60 ml/min/1.73 sqM); Albumin 3.7 g/dL (3.5-5.0); Albumin/Globulin Ratio 1.4; Alkaline Phosphatase 249 U/L (38-126); Amylase 54 U/L (30-110); Anion Gap 5 mmol/L; Blood Urea Nitrogen 6 mg/dL (9-20); Calcium 8.8 mg/dL (8.4-10.2); Carbon Dioxide 29 mmol/L (22-30); Chloride 104 mmol/L (98-107); Globulin 2.6 g/dL; Glucose 97 mg/dL (74-99); Lipase 49 U/L (23-300); Non-African American GFR(CKD) >90 (>60 ml/min/1.73 sqM); Potassium 3.8 mmol/L (3.5-5.1); Sodium 138 mmol/L (137-145); Total Bilirubin 5.9 mg/dL (0.2-1.3); Total Protein 6.3 g/dL (6.3-8.2)
--- NOTE | 2021-10-22 09:02 | P.PN ---
Subjective Progress Note Date: 10/22/21 Hospital course: Patient is a 46-year-old male who presents to the emergency department with a chief complaint of upper abdominal pain for 2 days. Describes it as an aching pain in the middle upper abdomen. No chest pain. Patient had several episodes of vomiting with this. No fever or chills. Normal bowel movements, nonbloody. Of note, patient had spinal fusion 3 weeks ago. No history of acid reflux. No history of abdominal surgery. Upon arrival to the emergency department patient was found to have tachycardia with heart rate elevating to 110s and trans aminitis with total bili of 2.8, AST 327, ALT 596 and alkaline phosphatase of 279. Lipase normal findings at 47. Abdominal ultrasound was completed which revealed gallbladder filled with stones with wall thickening. Patient was admitted under our services with consultation to general surgery. MRCP completed on 10/18/21 which revealed a mildly dilated common bile duct. Patient underwent cholecystectomy 10/19/[address] Palmer. He remains hospitalized as he continues to have persistent transaminitis with worsening hyperbilirubinemia. GI is following patient will likely undergo ERCP later today. Physical exam: Patient was seen and fully evaluated at bedside this morning. He is postop day 3 from laparoscopic cholecystectomy. He reports he is having improvement in his abdominal pain and is having normal bowel movements. He states he feels significantly weak and fatigued. Patient denies any further episodes of nausea or vomiting and denies any other complaints at this time including headache, lightheadedness, dizziness, chest pain, palpitations, or shortness of breath. Vital signs have remained stable. Morning labs reveal continued elevation of bilirubin with total bili of 5.9 and continued transaminitis with AST of 171, ALT of 354, and alkaline phosphatase of 249. INR 1.0. GI is following, patient will likely undergo ERCP later today. Vital signs reviewed and stable. General: Nontoxic, no distress and appears stated age. Derm: Skin warm and dry, normal coloration for ethnicity. Head: Atraumatic, normocephalic and symmetric. Eyes: EOMs intact, no lid lag, and anicteric sclera Mouth: no lip lesions, mucus membranes moist Cardiovascular: regular rate and rhythm with normal S1S2, no murmur, positive posterior tibial pulses bilaterally, and cap refill < 2 seconds. Lungs: Respirations even, regular, and unlabored on room air. Lungs CTA bilaterally, no rhonchi, no rales, no wheezing, and no accessory muscle usage. Abdominal: soft, minimal epigastric tenderness upon palpation, no guarding, no appreciable organomegaly Ext: ROM intact. No gross muscle atrophy, no edema, no contractures Neuro: Speech clear, face symmetrical and CN II-XII grossly intact with no noted focal neuro deficits Psych: Alert and oriented to person, place, time, and situation. Appropriate and pleasant affect. Assessment and Plan of Care: Hyperbilirubinemia, worsening Abdominal pain secondary to acute cholecystitis with cholelithiasis Transaminitis Status post laparoscopic cholecystectomy on 10/19/21 -Gen. surgery following, patient underwent laparoscopic cholecystectomy on 10/19/21 -Postop day 2, Patient continues to have hyperbilirubinemia with bilirubin of 5.4 and transaminitis with AST of 148, ALT 340, and alkaline phosphatase of 257. -Consult placed to gastroenterology for possible ERCP. -Clear liquid, NPO at midnight. -Symptomatic care and pain management -Patient completed 5 day course of IV antibiotics with Zosyn. -Patient was treated with IV fluid hydration -Continued close monitoring with repeat a.m. labs. Chronic ADHD, Depression Hold meds for now as he is nothing by mouth CODE STATUS: Full code DVT prophylaxis: Lovenox Discussed with: Patient and RN Anticipated discharge date: Clinical course to determine Anticipated discharge place: Home A total of 31 minutes was spent on the care of this complex patient more than 50% of the time was spent in counseling and care coordination. Objective - Vital Signs Vital signs: Vital Signs Temp 97.6 F 10/22/21 07:00 Pulse 72 10/22/21 07:00 Resp 16 10/22/21 07:00 BP 154/85 10/22/21 07:00 Pulse Ox 95 10/22/21 07:00 Intake & Output 10/21/21 10/22/21 10/22/21 18:59 06:59 18:59 Other: Voiding Method Toilet Toilet # Voids 1 2 - Labs CBC & Chem 7: 10/21/21 06:16 10/22/21 07:01 Labs: Abnormal Lab Results - Last 24 Hours (Table) 10/21/21 10/21/21 10/22/21 Range/Units 06:16 06:16 07:01 RBC 4.01 L (4.40-5.60) X 10*6/uL Hgb 12.3 L (13.0-17.0) g/dL Hct 35.5 L (39.6-50.0) % Lymphocytes # 0.80 L (0.90-5.00) X 10*3/uL Eosinophils # 0.64 H (0.04-0.35) X 10*3/uL Carbon Dioxide 28.3 H (20.0-27.5) mmol/L Anion Gap 7.70 L (10.00-18.00) mmol/L BUN 5.5 L 6 L (9.0-27.0) mg/dL BUN/Creatinine Ratio 6.88 L (12.00-20.00) Ratio Total Bilirubin 5.40 H 5.9 H (0.30-1.20) mg/dL AST 148 H 171 H (14-35) U/L ALT 340 H 354 H (10-49) U/L Alkaline Phosphatase 257 H 249 H (41-126) U/L Total Protein 5.8 L (6.2-8.2) g/dL Microbiology - Last 24 Hours (Table) 10/17/21 15:37 Blood Culture - Preliminary Blood No Growth after 96 hours 10/17/21 15:37 Blood Culture - Preliminary Blood No Growth after 96 hours
[2021-10-22] MEDS: VENLAFAXINE HCL ER 75 MG CAP PO SCH (09:35)
--- NOTE | 2021-10-22 11:39 | P.PN ---
Subjective Progress Note Date: 10/22/21 CHIEF COMPLAINT: Abdominal pain HISTORY OF PRESENT ILLNESS: Patient is status post laparoscopic cholecystectomy postop day #3. Patient reports slight improvement in his abdominal pain. His LFTs and total bilirubin did increase. He is scheduled for ERCP today. He denies any nausea vomiting. He reports having a bowel movement. Afebrile. Total bilirubin is up from 5.4-5.9. Left T is trending upwards. PHYSICAL EXAM: VITAL SIGNS: Reviewed. GENERAL: Well-developed in no acute distress. HEENT: No sclera icterus. Extraocular movements grossly intact. Moist buccal mucosa. Head is atraumatic, normocephalic. ABDOMEN: Soft. Nondistended. Tenderness epigastric area Incision sites clean dry and intact NEUROLOGIC: Alert and oriented. Cranial nerves II through XII grossly intact. ASSESSMENT: 1. Acute cholecystitis with cholelithiasis status post laparoscopic cholecystectomy 2. Possible choledocholithiasis with Elevated LFTs and total bilirubin PLAN: -Patient scheduled for ERCP today with GI service -Continue to monitor LFTs -Continue antibiotics -Continue pain medication as needed -Continue to monitor -DVT prophylaxis Lovenox Physician Clinical Fellow note has been reviewed by physician. Signing provider agrees with the documented findings, assessment, and plan of care. I have personally seen and examined the patient, reviewed the DIGITAL MARKETING ASSISTANT /PAs history, exam and MDM and agree with the assessment and plan as written. Based on total visit time, I have performed more than 50% of the visit. As above: Patient's labs show an increase in bilirubin. He underwent ERCP today by GI which showed no evidence of biliary leak or definite obstruction. Stent was placed. Viral markers have been ordered by GI. Continue antibiotics. Continue to follow liver enzymes. Objective - Vital Signs Vital signs: Vital Signs Temp 97.6 F 10/22/21 07:00 Pulse 72 10/22/21 07:00 Resp 16 10/22/21 07:00 BP 154/85 10/22/21 07:00 Pulse Ox 95 10/22/21 07:00 Intake & Output 10/21/21 10/22/21 10/22/21 18:59 06:59 18:59 Other: Voiding Method Toilet Toilet # Voids 1 2 - Labs CBC & Chem 7: 10/21/21 06:16 10/22/21 07:01 Labs: Abnormal Lab Results - Last 24 Hours (Table) 10/22/21 Range/Units 07:01 BUN 6 L (9-20) mg/dL Total Bilirubin 5.9 H (0.2-1.3) mg/dL AST 171 H (17-59) U/L ALT 354 H (4-49) U/L Alkaline Phosphatase 249 H (38-126) U/L Microbiology - Last 24 Hours (Table) 10/17/21 15:37 Blood Culture - Preliminary Blood No Growth after 96 hours 10/17/21 15:37 Blood Culture - Preliminary Blood No Growth after 96 hours
[2021-10-22] MEDS ORDERED: INDOMETHACIN 50MG SUPPOSITORY RECTAL ONE (12:00)
[2021-10-22] MEDS ORDERED: LEVOFLOXACIN 500MG-D5W PMX 500 MG in DEXTROSE/WATER 1 100ML.BAG IVPB SCH (12:00)
[2021-10-22 14:13] VITALS: BMI 26.4
[2021-10-22] MEDS ORDERED: IV FLUID CONTINUATION 600 ML IV ONE (16:48)
[2021-10-22] MEDS ORDERED: MIDAZOLAM 2 MG/2 ML VIAL ONE (16:50)
[2021-10-22] MEDS ORDERED: PROPOFOL 10 MG/ML 20 ML VIAL IV ONE (16:50)
[2021-10-22] MEDS ORDERED: KETAMINE 10 MG/ML 20 ML VIAL ONE (16:50)
[2021-10-22] MEDS ORDERED: ONDANSETRON 4 MG/2 ML VIAL ONE (16:50)
[2021-10-22] MEDS ORDERED: IOPAMIDOL-300 50ML BTL MISCELLANE ONE (17:10)
--- NOTE | 2021-10-22 17:44 | P.PCN ---
Date of Procedure: 10/22/21 Procedure(s) Performed: Brief history: Patient is a 46-year-old white male in the hospital 5 days ago with acute onset of severe epigastric pains with nausea vomiting of 2 days' duration. He had imaging studies done which showed small gallstones and subsequently underwent gallbladder surgery by Dr. Palmer .at the time of admission to hospital serum transaminases were elevated including bilirubin up to 2.9 and severe anemia and continues to be in the 300s range. He did have an MRCP done that did not show any evidence of filling defects in the common bile duct.. The gallbladder surgery continues to have a gastric pain with worsening bilirubin and yesterday was 5.9 g/dL. He continues to have persistent epigastric discomfort and intermittent nausea vomiting. Because of clinical suspicion for choledocholithiasis he scheduled for an ERCP today. Procedure performed: ERCP Preoperative diagnoses: Epigastric pain/limited LFTs and jaundice/rule out CBD stone IV sedation per anesthesia: Procedure: After informed consent was obtained from the patient and after the risks benefits and complications including bleeding perforation and pancreatitis explained in detail the patient was brought into the endoscopy unit. The patient was placed in prone position and IV conscious sedation was administered by anesthesia under continuous monitoring. The Olympus side-viewing duodenoscope was then inserted into the mouth and esophagus intubated without any difficulty. The scope was gradually advanced into the stomach and duodenum. The major papilla was identified without any difficulty. Initial cannulation resulted in opacification of the pancreatic duct that appeared normal. Subsequently using a guidewire technique I was able to cannulate the common bile duct with some difficulty. Upon injection of the dye the common bile duct measuring 1 cm in diameter this short smooth narrowing of the distal common bile duct measuring about 2 cm in length. There were no filling defects noted. At this time I proceeded with a 7-[place] 5 cm with the stent placement and The stent was deployed and because of technical difficulty with the elevator of the scope the stent fell out. At this time the stent was removed. The common bile duct was recannulated and a guidewire techniqu and the guidewire advanced into the intrahepatic biliary system. Following this a 7-[place] 7 cm [place] plastic stent was placed over the guidewire into the proximal CBD and good drainage of the bile was noted. Patient tolerated the procedure well. Impression: 1. Slightly dilated common bile duct measuring 1 cm in diameter with a short smooth as the common bile duct narrowing measuring 2 cm in length with hesitancy to the drainage of bile and dye status post 7-[place]izen [place], 7 cm plastic stent placement as described above 2.. Pancreatic Duct appeared normal Recommendations: The findings of this examination were discussed with the patient as well as a family. . At this time will monitor LFTs closely. If LFTs improve in the next month he can be discharged home with outpatient follow-up in 2 weeks. We'll plan on repeat ERCP with CBD stent removal in 6 weeks
[2021-10-22] MEDS: HYDROmorphone 0.5 MG/0.5 ML SYRINGE IVP PRN (18:13)
--- NOTE | 2021-10-22 18:16 | FL ---
Intraoperative fluoroscopic services were provided for ERCP. Total fluoroscopy time is 3 minutes 30 s econds with a total of 4 submitted images to PACS. Please see the operative note for further details.
[2021-10-22] MEDS: SODIUM CHLORIDE 0.9% 1,000 ML IV SCH (18:18)
[2021-10-22] MEDS: ONDANSETRON 4 MG/2 ML VIAL IVP PRN (21:29)
[2021-10-22] MEDS: HYDROmorphone 1 MG/ML 1 ML SYRINGE IVP PRN (21:30)
[2021-10-23] MEDS: KETOROLAC 15 MG/ML 1 ML VIAL IVP SCH ×3 (00:29→12:27)
[2021-10-23] MEDS: SODIUM CHLORIDE 0.9% 1,000 ML IV SCH ×2 (04:37→15:15)
[2021-10-23] MEDS: HYDROmorphone 0.5 MG/0.5 ML SYRINGE IVP PRN ×2 (05:00→08:29)
[2021-10-23] MEDS: VENLAFAXINE HCL ER 75 MG CAP PO SCH (08:30)
[2021-10-23 09:41] LABS: Basophils # (A) 0.06 X 10*3/uL (0.00-0.10); Basophils % (A) 0.8 %; Eosinophils # (A) 0.73 X 10*3/uL (0.04-0.35); Eosinophils % (A) 9.6 %; HCT 36.2 % (39.6-50.0); HGB 12.7 g/dL (13.0-17.0); Immature Grans, Automated 0.7 %; Lymphocytes % (A) 11.8 %; MCH 30.6 pg (27.0-32.0); MCHC 35.1 g/dL (32.0-37.0); MCV 87.2 fL (80.0-97.0); Mean Platelet Volume 10.8 fL (9.5-12.2); Monocytes # (A) 0.66 X 10*3/uL (0.20-1.00); Monocytes % (A) 8.7 %; NRBC Per 100 WBC 0 /100 WBCS (0.0-0.0); Neutrophils # (A) 5.23 X 10*3/uL (1.80-7.70); Neutrophils % (A) 68.4 %; Platelet Count 241 X 10*3/uL (140-440); RBC 4.15 X 10*6/uL (4.40-5.60); RDW 12.8 % (11.5-14.5); WBC 7.63 X 10*3/uL (4.50-10.00)
[2021-10-23 09:51] LABS: African American GFR (CKD) 132.1 (60.0-200.0); Albumin 3.6 g/dL (3.8-4.9); Albumin/Globulin Ratio 1.8 (1.60-3.17); Anion Gap 10.6 mmol/L (10.00-18.00); BUN/Creat Ratio 14.14 Ratio (12.00-20.00); Blood Urea Nitrogen 9.9 mg/dL (9.0-27.0); Calcium 8.7 mg/dL (8.7-10.3); Carbon Dioxide 24.4 mmol/L (20.0-27.5); Potassium 3.8 mmol/L (3.5-5.5); Total Bilirubin 4.9 mg/dL (0.30-1.20); Total Protein 5.6 g/dL (6.2-8.2)
[2021-10-23 10:11] LABS: Hepatitis A Antibody IgM Nonreactive (Nonreactive); Hepatitis B Core IgM Nonreactive (Nonreactive); Hepatitis B Surface Antigen Nonreactive (Nonreactive); Hepatitis C IgG Antibody Nonreactive (Nonreactive)
--- NOTE | 2021-10-23 12:32 | P.DS ---
Providers Date of admission: 10/17/21 18:00 Expected date of discharge: 10/23/21 Attending physician: Anuj Monreal MD Consults: 10/17/21 14:20 Consult Physician Stat Consulting Provider: Kwasi Palmer Consult Reason/Comments: acute cholecystitis Do you want consulting provider notified?: Already Contacted 10/21/21 10:40 Consult Physician Routine Consulting Provider: Simin Paul Consult Reason/Comments: possible ERCP, choledocholithiasis Do you want consulting provider notified?: Yes Primary care physician: Isabelle Cardoza MD Hospital Course: Discharge Diagnosis: Abdominal pain secondary to acute cholecystitis with cholelithiasis Bile duct obstruction status post biliary stent Transaminitis and hyperbilirubinemia secondary to above ADHD Depression Hospital Course: Patient is a 46-year-old male who presents to the emergency department with a chief complaint of upper abdominal pain for 2 days. Describes it as an aching pain in the middle upper abdomen. No chest pain. Patient had several episodes of vomiting with this. No fever or chills. Normal bowel movements, nonbloody. Of note, patient had spinal fusion 3 weeks ago. No history of acid reflux. No history of abdominal surgery. Upon arrival to the emergency department patient was found to have tachycardia with heart rate elevating to 110s and transaminitis with total bili of 2.8, AST 327, ALT 596 and alkaline phosphatase of 279. Lipase normal findings at 47. Abdominal ultrasound was completed which revealed gallbladder filled with stones with wall thickening. Patient was admitted under our services with consultation to general surgery. MRCP completed on 10/18/21 which revealed a mildly dilated common bile duct. Patient underwent cholecystectomy 10/19/[address] Palmer. After surgery patient continued to have elevated LFTs as well as elevated bilirubin that continued to increase. So GI was consulted and he had an ERCP done with biliary stent placement. After the procedure his bilirubin was trending down and LFTs are stable. He was then deemed stable for discharge. Patient instructed to get a CMP and 5 days and to follow with gastroenterology for removal of the biliary stent and to monitor his liver function. Patient seen and examined at bedside.[] Vital signs reviewed and stable. General: [non toxic], [no distress], [appears at stated age] Derm: [warm], [dry] Head: [atraumatic], [normocephalic], [symmetric] Eyes: + Scleral icterus Mouth: [no lip lesion], [mucus membranes moist] Cardiovascular: [S1S2 reg], [no murmur], [positive posterior tibial pulse bilateral], Lungs: [CTA bilateral], [no rhonchi, no rales] , [no accessory muscle use] Abdominal: [soft], [ nontender to palpation], [no guarding], [no appreciable organomegaly] Ext: [no gross muscle atrophy], [no edema], [no contractures] Neuro: [ CN II-XI grossly intact], [no focal neuro deficits] Psych: [Alert], [oriented], [appropriate affect] A total of [33] minutes of time were spent preparing this complex discharge summary . Patient Condition at Discharge: Good Plan - Discharge Summary Discharge Rx Participant: No New Discharge Prescriptions: Continue Venlafaxine HCl [Effexor XR] 75 mg PO DAILY tadalafiL 5 mg PO DAILY PRN PRN Reason: e.d. Dextroamphetamine/Amphetamine [Adderall Xr] 25 mg PO DAILY Discontinued Ibuprofen [Motrin] 800 mg PO TID PRN PRN Reason: Pain Discharge Medication List Venlafaxine HCl [Effexor XR] 75 mg PO DAILY 10/05/20 [History] tadalafiL 5 mg PO DAILY PRN 10/05/20 [History] Dextroamphetamine/Amphetamine [Adderall Xr] 25 mg PO DAILY 10/17/21 [History] Follow up Appointment(s)/Referral(s): Simin Paul MD [STAFF PHYSICIAN] - 1 Week Isabelle Cardoza MD [Primary Care Provider] - 1-2 days Kwasi Palmer MD [STAFF PHYSICIAN] - 1 Week Activity/Diet/Wound Care/Special Instructions: Activity: As tolerated. Take breaks as needed. Diet: Heart healthy and carb consistent diet. Avoid salts, or foods with hidden salts such as canned or boxed foods and frozen dinners. Extra salt makes your heart work harder and traps the fluid in your body for longer. Special Instructions: Take all of your medications as directed and remember to keep all of your doctor's appointments and follow-up as needed. Thank you for allowing us to participate in your care, it was truly a pleasure having you for our patient!!! Discharge Disposition: HOME SELF-CARE
[2021-10-23 13:10] VITALS: BP 149/87; PULSE 74; RESP 16; TEMP 98.8
--- NOTE | 2021-10-23 14:07 | P.PN ---
Subjective Progress Note Date: 10/23/21 CHIEF COMPLAINT: Cholecystitis HISTORY OF PRESENT ILLNESS: The patient is a 46-year-old male status post cholecystectomy for cholecystitis and status post ERCP for hyperbilirubinemia. Stent was placed yesterday via ERCP. abdominal pain has improved. ROS: No reports of nausea and vomiting. No bowel movements. No fevers or chills. No new chest pain. No productive sputum PHYSICAL EXAM: VITAL SIGNS: Reviewed CONSTITUTIONAL: Well developed and in no acute distress. EYES: Conjuctivae sclera icterus. Extraocular movements grossly intact. HEAD, EARS, NOSE, THROAT: Moist buccal mucosa. Head is atraumatic, normocephalic. Hears conversational speech. No nasal drainage. RESPIRATORY: Non-labored respirations and equal bilateral excursions. CARDIOVASCULAR: Palpable 2+ radial pulses. ABDOMEN: No peritonitis. MUSCULOSKELETAL: No gross deformity of the lower extremities noted. No clubbing. No cyanosis. SKIN: Good skin turgor. Well perfused. Jaundice NEUROLOGIC: Cranial nerves II through XII grossly intact. No focal or lateralizing signs. PSYCH: Appropriate affect. Alert and oriented to person, place and time. CLINICAL LABS: Reviewed. Total bilirubin down 5.9-4.9. LFTs elevated. WBC normal 7.6. ASSESSMENT: 1. Acute cholecystitis 2. Jaundice PLAN: 1. Continue hospitalization for at least 24 hours pending improvement of LFTs as jaundice is still moderately elevated. Objective - Vital Signs Vital signs: Vital Signs Temp 98.1 F 10/23/21 07:45 Pulse 71 10/23/21 07:45 Resp 14 10/23/21 07:45 BP 150/86 10/23/21 07:45 Pulse Ox 96 10/23/21 07:45 Intake & Output 10/22/21 10/23/21 10/23/21 18:59 06:59 18:59 Intake Total 550 118 Balance 550 118 Weight 86.183 kg Intake: IV 550 Oral 118 Other: Voiding Method Toilet Urinal # Voids 3 2 # Bowel Movements 1 - Labs CBC & Chem 7: 10/23/21 05:51 10/23/21 05:51 Labs: Abnormal Lab Results - Last 24 Hours (Table) 10/23/21 10/23/21 Range/Units 05:51 05:51 RBC 4.15 L (4.40-5.60) X 10*6/uL Hgb 12.7 L (13.0-17.0) g/dL Hct 36.2 L (39.6-50.0) % Immature Gran # 0.05 H (0.00-0.04) X 10*3/uL Eosinophils # 0.73 H (0.04-0.35) X 10*3/uL Total Bilirubin 4.90 H (0.30-1.20) mg/dL AST 164 H (14-35) U/L ALT 367 H (10-49) U/L Alkaline Phosphatase 282 H (41-126) U/L Total Protein 5.6 L (6.2-8.2) g/dL Albumin 3.6 L (3.8-4.9) g/dL Microbiology - Last 24 Hours (Table) 10/17/21 15:37 Blood Culture - Preliminary Blood No Growth after 120 hours 10/17/21 15:37 Blood Culture - Preliminary Blood No Growth after 120 hours
[2021-10-23 15:35] LABS: ALT 342 U/L (4-49); AST 156 U/L (17-59); African American GFR (CKD) >90 (>60 ml/min/1.73 sqM); Albumin 3.5 g/dL (3.5-5.0); Albumin/Globulin Ratio 1.3; Alkaline Phosphatase 271 U/L (38-126); Anion Gap 4 mmol/L; Blood Urea Nitrogen 12 mg/dL (9-20); Calcium 8.4 mg/dL (8.4-10.2); Carbon Dioxide 30 mmol/L (22-30); Chloride 101 mmol/L (98-107); Globulin 2.6 g/dL; Glucose 132 mg/dL (74-99); Non-African American GFR(CKD) >90 (>60 ml/min/1.73 sqM); Potassium 3.6 mmol/L (3.5-5.1); Sodium 135 mmol/L (137-145); Total Bilirubin 4.4 mg/dL (0.2-1.3); Total Protein 6.1 g/dL (6.3-8.2)
== END 2021-10-23 16:16 | disposition home or self-care (01) | DRG 419 ==
LOC: EC 11:43 → 6NMEDSUR 14:29 → OBSVTOIN 18:00
PROVIDERS: ADMIT Internal Medicine; ATTEND Internal Medicine
PROC: 0FT44ZZ Resection of Gallbladder, Percutaneous Endoscopic Approach (ICD-10-PCS; principal; 2021-10-19 12:30)
PROC: 0F798DZ Dilation of Common Bile Duct with Intraluminal Device, Via Natural or Artificial Opening Endoscopic (ICD-10-PCS; 2021-10-22)
DX: K80.67 Calculus of gallbladder and bile duct with acute and chronic cholecystitis with obstruction (principal); R74.01 Elevation of levels of liver transaminase levels; F32.A Depression, unspecified; F90.9 Attention-deficit hyperactivity disorder, unspecified type; R00.0 Tachycardia, unspecified; E78.00 Pure hypercholesterolemia, unspecified; I10 Essential (primary) hypertension; K83.8 Other specified diseases of biliary tract; R79.89 Other specified abnormal findings of blood chemistry; D64.9 Anemia, unspecified; Z79.899 Other long term (current) drug therapy; Z98.1 Arthrodesis status
CPT/HCPCS: 36415; 43274; 71046; 74181; 74330; 76705; 80053; 80074; 82150; 83690; 83735; 84100; 85025; 85610; 87040; 88304; 93005; 96365; 96375; 96376; 99285

== ENCOUNTER → 2021-12-24 | Day surgery (SDC) | payer BC ==
[2021-12-23 12:14] VITALS: BMI 25.1
[~2021-12-24] MED LIST: LIDOCAINE 1% (10MG/ML) FOR IV START INTRADERMA PRN; LIDOCAINE 2% INJ 20 MG/ML (2 ML VIAL) ONE; MIDAZOLAM 2 MG/2 ML VIAL ONE; PROPOFOL 10 MG/ML 20 ML VIAL IV ONE; fentaNYL (PF) 50 MCG/ML 2 ML AMP ONE
[2021-12-24] MEDS: LACTATED RINGERS 1,000 ML IV SCH ×2 (09:38→10:32)
[2021-12-24 09:58] VITALS: TEMP 97.3
--- NOTE | 2021-12-24 10:48 | P.PCN ---
Date of Procedure: 12/24/21 Procedure(s) Performed: BRIEF HISTORY: Patient is a 46-year-old, pleasant, white male scheduled for an upper endoscopy with CBD stent removal. He was admitted to the hospital in October 2021 and underwent gallbladder surgery following which he had CBD stent placement for bile leak.. PROCEDURE PERFORMED: Esophagogastroduodenoscopy with CBD stent removal. PREOPERATIVE DIAGNOSIS: History of bile leak and CBD stent placement in October of this year. IV sedation per anesthesia. PROCEDURE: After informed consent was obtained, the patient was brought into the endoscopy unit. IV sedation was administered by Anesthesia under continuous monitoring. Initially the Olympus GIF-140 video endoscope was inserted into the mouth. Esophagus intubated without any difficulty. It was gradually advanced into the stomach and duodenum and carefully examined. The bulb and the second part of the duodenum appeared normal. The computed tomography scan was noted in the second part of the duodenum. The scope at this time was withdrawn to the stomach, adequately insufflated with air, and upon careful examination, mucosa of the antrum, body, cardia and the fundus appeared normal. The scope was then withdrawn into the esophagus. The GE junction was located at 39 cm from the incisors. There were linear erosions in the distal esophagus consistent with LA grade B reflux esophagitis. Rest of esophagus appeared normal. At this time the scope was advanced into the second part of the duodenum and the previous in place CBD stent was held using the snare and was gently removed along with the scope out of the mouth. Patient tolerated the procedure well. IMPRESSION: 1. CBD stent removal as described above. 2. LA grade B reflux esophagitis. RECOMMENDATIONS: The findings of this examination were discussed with the patient as well as his family. He was advised to use [id number] H2 blockers as needed for reflux symptoms..
[2021-12-24 11:00] VITALS: RESP 16
[2021-12-24 11:09] VITALS: BP 128/89; PULSE 87
== END ==
LOC: ORWHC2ENDO 09:02
PROVIDERS: ATTEND Internal Medicine Gastroenterology
DX: Z46.59 Encounter for fitting and adjustment of other gastrointestinal appliance and device (principal); K20.90 Esophagitis, unspecified without bleeding; F41.9 Anxiety disorder, unspecified; F90.9 Attention-deficit hyperactivity disorder, unspecified type; Z79.899 Other long term (current) drug therapy
CPT/HCPCS: 43247; J2250; J3010; J2704; J2001; 44799